=== PATIENT | female | born 1965 | race Caucasian/White ===

== ENCOUNTER → 2016-08-24 | Outpatient (CLI) | payer MEDICARE, MEDICAID ==
[~2016-08-24] MED LIST: ABILIFY2 MG PO; ALBUTEROL S0.4 MG/ML IH; AMBIEN 10MG10 MG PO; AMBIEN CR 12.12.5 MG; AMBIEN CR 12.12.5 MG PO; ATROVENT0.018 MG/A IH; BIAXIN XL500 MG PO; BUSPAR DIVIDOSE15 MG PO; CIPRO 500MG TA500 MG PO; CLARITIN 1010 MG/TAB PO; CLARITIN10 MG PO; CLONAZEPAM1 MG PO; COMBIVENT INH14.7 GM IH; CYCLOBENZAPRINE10 MG PO; CYMBALTA 30MG30 MG PO; DAZIDOX10 MG PO; DILAUDID 4MG TAB4 MG PO; DOXYCYCLINE 10100 MG PO; DOXYCYCLINE HY100 MG PO; ERY-TAB250 M1 PO; FLEXERIL10 MG PO; FLONASE0.05 MG/AC NS; FLUOXETINE10 MG PO; FLUOXETINE40 MG PO; K-DUR 2020 MEQ PO; KLONOPIN 0.5MG0.5 MG PO; KLONOPIN 1MG1 MG PO; KLONOPIN0.5 MG PO; LAMICTAL CD25 MG PO; LASIX 20MG TABL20 MG PO; LASIX 40MG TABL40 MG PO; LORATADINE10 MG PO; LORTAB 7.5/5001 TAB PO; LYRICA 75MG CAP75 MG PO; LYRICA100 MG PO; LYRICA150 MG PO; LYRICA75 MG PO; MAGNESIUM OXIDE; MAXALT MLT10 MG/TAB PO; NASONEX SPRAY PO; NIASPAN1000 MG PO; NORCO 325 MG-7.1 TAB; NYSTOP100000 U/G TP; OXYCONTIN10 MG PO; OXYCONTIN20 MG PO; OXYCONTIN30 MG PO; PERCOCET 325 MG1 TA2 PO; PERCR 7.5 PO; PHENERGAN 25 TA25 MG PO; POTASSIUM CHLO25 ME1 PO; PRAVACHOL10 MG PO; PREMARIN .3MG0.3 MG PO; PRILOSEC 20MG20 MG PO; PRILOSEC10 MG PO; PROTONIX 40MG T40 MG PO; PULMICORT0.5 MG/21 IH; REMERON 15M15 MG/TA1 PO; REXULTI1 MG PO; RT SPIRIVA18 MCG INH; SARAFEM20 MG PO; SIMVASTATIN40 MG PO; SINGULAIR10 MG PO; SONATA10 MG PO; TOPAMAX25 M1 PO; TOPAMAX50 MG PO; TRIAMTERENE AND1 TA1 PO; TRIAMTERENE W/H1 CAP PO; ULTRAM 50MG TAB50 MG PO; VALIUM 2MG T2 MG/TAB PO; VENTOLIN0.09 MG IH; VISTARIL 2525 MG/CAP PO; VOLTAREN1% TP; ZANAFLEX CAPSULE2 MG PO; ZANTAC 150MG T150 MG PO; ZAROXOLYN PO; ZOCOR 20MG20 MG PO; [UNRECOGNIZED DRUG - REMARK]
== END ==
LOC: COL.RAD 11:15
DX: R41.0 Disorientation, unspecified (principal)
CPT/HCPCS: A9585

== ENCOUNTER 2016-09-19 10:23 | Emergency (ER) | payer MEDICARE, MEDICAID ==
[~2016-09-19 10:23] MED LIST changes: -DOXYCYCLINE 10100 MG PO; -DOXYCYCLINE HY100 MG PO
[2016-09-19 10:30] VITALS: BP 115/73; TEMP 98.3
[2016-09-19] MEDS ORDERED: DOXYCYCLINE 10100 MG PO (11:04)
[2016-09-19 11:41] VITALS: PULSE 94
== END 2016-09-19 11:41 | disposition home or self-care (01) ==
LOC: COL.ER 10:23
DX: L02.214 Cutaneous abscess of groin (principal); G43.909 Migraine, unspecified, not intractable, without status migrainosus; K21.9 Gastro-esophageal reflux disease without esophagitis; F43.10 Post-traumatic stress disorder, unspecified; F41.9 Anxiety disorder, unspecified; F32.9 Major depressive disorder, single episode, unspecified; J44.9 Chronic obstructive pulmonary disease, unspecified; F17.210 Nicotine dependence, cigarettes, uncomplicated; Z86.73 Personal history of transient ischemic attack (TIA), and cerebral infarction without residual deficits

== ENCOUNTER 2016-12-09 11:55 | Emergency (ER) | payer MEDICARE, MEDICAID ==
[~2016-12-09] VITALS: Ht 165.1 cm; Wt 117.5 kg
[~2016-12-09 11:55] MED LIST changes: +DOXYCYCLINE 10100 MG PO
[2016-12-09 11:56] VITALS: BP 129/75; PULSE 86; TEMP 97.2
[2016-12-09] MEDS ORDERED: DAZIDOX10 MG PO (13:00)
== END 2016-12-09 14:07 | disposition home or self-care (01) ==
LOC: COL.ER 11:55
DX: G89.18 Other acute postprocedural pain (principal); K59.00 Constipation, unspecified; E11.9 Type 2 diabetes mellitus without complications; I10 Essential (primary) hypertension; F43.10 Post-traumatic stress disorder, unspecified; M79.7 Fibromyalgia; F17.200 Nicotine dependence, unspecified, uncomplicated
CPT/HCPCS: J1170

== ENCOUNTER 2017-01-12 16:15 | Emergency (ER) | payer MEDICARE, MEDICAID ==
[~2017-01-12] VITALS: Ht 165.1 cm; Wt 122.7 kg
[2017-01-12 16:21] VITALS: BP 104/61; TEMP 98.6
[2017-01-12] MEDS ORDERED: DOXYCYCLINE HY100 MG PO (17:11)
[2017-01-12 17:19] VITALS: PULSE 84
== END 2017-01-12 17:21 | disposition home or self-care (01) ==
LOC: COL.ER 16:15
DX: L03.311 Cellulitis of abdominal wall (principal); J98.01 Acute bronchospasm; F32.9 Major depressive disorder, single episode, unspecified; F41.9 Anxiety disorder, unspecified; F17.210 Nicotine dependence, cigarettes, uncomplicated; Z90.49 Acquired absence of other specified parts of digestive tract

== ENCOUNTER 2017-02-07 16:05 | Emergency (ER) | payer MEDICARE, MEDICAID ==
[~2017-02-07] VITALS: Ht 165.1 cm; Wt 126.8 kg
[~2017-02-07 16:05] MED LIST changes: +DOXYCYCLINE HY100 MG PO
[2017-02-07 16:08] VITALS: BP 119/71; PULSE 90; TEMP 97.7
[2017-02-07] MEDS ORDERED: TESSALON PERLE200 MG PO (16:23)
[2017-02-07] MEDS ORDERED: FENTANYL 25 MCG TD (16:23)
[2017-02-07] MEDS ORDERED: OMNICEF 300MG300 MG PO (16:24)
== END 2017-02-07 16:45 | disposition home or self-care (01) ==
LOC: COL.ER 16:05
DX: R21 Rash and other nonspecific skin eruption (principal)

== ENCOUNTER 2017-02-16 10:20 | Emergency (ER) | payer MEDICARE, MEDICAID ==
[~2017-02-16] VITALS: Ht 165.1 cm; Wt 115.5 kg
[~2017-02-16 10:20] MED LIST changes: +FENTANYL 25 MCG TD; +OMNICEF 300MG300 MG PO; +TESSALON PERLE200 MG PO
[2017-02-16 10:23] VITALS: BP 124/64; TEMP 98.1
[2017-02-16 11:45] VITALS: PULSE 58
== END 2017-02-16 11:45 | disposition home or self-care (01) ==
LOC: COL.ER 10:20
DX: S39.012A Strain of muscle, fascia and tendon of lower back, initial encounter (principal); S39.013A Strain of muscle, fascia and tendon of pelvis, initial encounter; J44.9 Chronic obstructive pulmonary disease, unspecified; F17.210 Nicotine dependence, cigarettes, uncomplicated; W01.198A Fall on same level from slipping, tripping and stumbling with subsequent striking against other object, initial encounter

== ENCOUNTER 2017-06-12 10:23 | Emergency (ER) | payer MEDICARE, MEDICAID ==
[~2017-06-12] VITALS: Ht 165.1 cm; Wt 106.8 kg
[~2017-06-12 10:23] MED LIST changes: +CHANTIX 1MG1 MG PO; +KLOR-CON 88 ME1; -LYRICA150 MG PO; +LYRICA300 MG PO; +PREDNISONE20 MG PO; +PROZAC40 MG PO; +REQUIP 1MG T1 MG/TAB PO; +REXULTI2 MG PO; +SINGULAIR 110 MG/TAB PO; -SINGULAIR10 MG PO; +ZITHROMAX Z PA250 MG PO
[2017-06-12 10:29] VITALS: TEMP 97.6
[2017-06-12 11:20] LABS: BASO % 0.3 % (0.0-2.0); EOS % 0.3 % (0-4.0); GRAN # 4.3 (1.4-6.5); GRAN % 67.9 % (42.2-75.2); HEMATOCRIT 46.8 % (37.0-47.0); HEMOGLOBIN 15.7 g/dl (12.5-16.0); LYMPH # 1.6 (1.2-3.4); LYMPH % 25.5 % (20.0-51.0); MEAN CELL VOLUME 86 fl (80.0-100.0); MEAN CORPUSCULAR HEMOGLOBIN 29 pg (27.0-31.0); MEAN CORPUSCULAR HGB CONC 34 g/dl (33.0-37.0); MEAN PLATELET VOLUME 11.4 fl (7.4-10.4); MONO # 0.4 (0.1-0.6); MONO % 5.5 % (1.7-9.3); PLATELET COUNT 227 K/mm3 (130-400); RED BLOOD COUNT 5.45 M/mm3 (4.10-5.30); REDCELL DISTRIBUTION WIDTH-CV 15.1 % (11.5-14.5)
[2017-06-12 11:33] LABS: ALANINE AMINOTRANSFERASE 37 U/L (9-52); ALBUMIN 4.4 gm/dL (3.5-5.0); ALKALINE PHOSPHATASE 118 U/L (50-136); ANION GAP 10 mmol/L (7-16); AST,SGOT 35 U/L (15-37); BILIRUBIN,TOTAL 0.9 mg/dL (0.0-1.0); BLOOD UREA NITROGEN 10 mg/dL (7-17); C-REACTIVE PROTEIN 2.9 mg/dL (0.0-0.9); CALCIUM 9.5 mg/dL (8.4-10.2); CARBON DIOXIDE 25 mmol/L (22-30); CHLORIDE 102 mmol/L (98-107); CREATININE, serum 0.49 mg/dL (0.52-1.25); GLUCOSE 138 mg/dL (74-106); POTASSIUM 3.7 mmol/L (3.4-5.0); SODIUM 137 mmol/L (137-145); TOTAL PROTEIN 7.7 gm/dL (6.4-8.2)
[2017-06-12 11:41] LABS: ACETAMINOPHEN < 10 ug/mL (10-30); ALCOHOL(ethanol),MEDICAL < 10 mg/dL; SALICYLATE < 1.0 mg/dL
[2017-06-12] MEDS ORDERED: FENTANYL 75MCG TD (11:45)
[2017-06-12] MEDS ORDERED: AMBIEN 10MG10 MG PO (11:47)
[2017-06-12] MEDS ORDERED: ZANAFLEX2 MG PO (11:50)
[2017-06-12] MEDS ORDERED: AMITRIPTYLINE H25 M1 PO (11:50)
[2017-06-12 12:28] LABS: COLLECTION METHOD CLEAN CATCH
[2017-06-12 12:44] LABS: TRICYCLIC ANTIDEPRESS URINE POSITIVE
[2017-06-12 12:46] LABS: MUCOUS Present /lpf; PH 6 (5-8); URINE APPEARANCE Cloudy; URINE BACTERIA None Seen /hpf; URINE BILIRUBIN Negative (NEGATIVE); URINE BLOOD Negative (NEGATIVE); URINE COLOR Yellow; URINE GLUCOSE Negative (NEGATIVE); URINE KETONE Negative (NEGATIVE); URINE LEUKOCYTE ESTERASE Negative (NEGATIVE); URINE NITRATE Negative (NEGATIVE); URINE PROTEIN(semi-quant) Negative (NEGATIVE); URINE UROBILINOGEN Negative (NEGATIVE)
[2017-06-12 13:52] VITALS: BP 104/68; PULSE 90
== END 2017-06-12 14:00 | disposition home or self-care (01) ==
LOC: COL.ER 10:23
PROVIDERS: Emergency Medicine
DX: F32.9 Major depressive disorder, single episode, unspecified (principal); R45.851 Suicidal ideations; F19.10 Other psychoactive substance abuse, uncomplicated; G89.29 Other chronic pain; F17.210 Nicotine dependence, cigarettes, uncomplicated
CPT/HCPCS: J2405; J7030

== ENCOUNTER 2017-07-08 16:55 | Emergency (ER) | payer MEDICARE, MEDICAID ==
[~2017-07-08] VITALS: Ht 165.1 cm; Wt 118.2 kg
[~2017-07-08 16:55] MED LIST changes: +AMITRIPTYLINE H25 M1 PO; +FENTANYL 75MCG TD; +ZANAFLEX2 MG PO
[2017-07-08 16:57] VITALS: BP 155/73; PULSE 99; TEMP 97.6
[2017-07-08] MEDS ORDERED: ULTRAM 50MG TAB50 MG PO (17:28)
[2017-07-08] MEDS ORDERED: CEPHALEXIN500 M1 PO (17:28)
== END 2017-07-08 17:37 | disposition home or self-care (01) ==
LOC: COL.ER 16:55
DX: K02.9 Dental caries, unspecified (principal); I10 Essential (primary) hypertension; J44.9 Chronic obstructive pulmonary disease, unspecified; F32.9 Major depressive disorder, single episode, unspecified; F41.9 Anxiety disorder, unspecified; F43.10 Post-traumatic stress disorder, unspecified; F17.210 Nicotine dependence, cigarettes, uncomplicated; Z87.39 Personal history of other diseases of the musculoskeletal system and connective tissue

== ENCOUNTER 2017-07-11 12:56 | Emergency (ER) | payer MEDICARE, MEDICAID ==
[~2017-07-11] VITALS: Ht 165.1 cm; Wt 119.1 kg
[~2017-07-11 12:56] MED LIST changes: +CEPHALEXIN500 M1 PO
[2017-07-11 13:03] VITALS: BP 120/74; PULSE 82; TEMP 97.7
[2017-07-11] MEDS ORDERED: KLONOPIN 1MG1 MG PO (13:47)
[2017-07-11] MEDS ORDERED: CLEOCIN HCL300 MG PO (14:50)
[2017-07-11] MEDS ORDERED: MOTRIN 600600 MG/TAB PO (15:12)
== END 2017-07-11 15:21 | disposition home or self-care (01) ==
LOC: COL.ER 12:56
DX: K02.9 Dental caries, unspecified (principal); I10 Essential (primary) hypertension; F32.9 Major depressive disorder, single episode, unspecified; F41.9 Anxiety disorder, unspecified; J44.9 Chronic obstructive pulmonary disease, unspecified; M79.7 Fibromyalgia; F17.210 Nicotine dependence, cigarettes, uncomplicated

== ENCOUNTER 2017-09-03 11:48 | Emergency (ER) | payer MEDICARE, MEDICAID ==
[~2017-09-03] VITALS: Ht 165.1 cm; Wt 118.2 kg
[~2017-09-03 11:48] MED LIST changes: +CLEOCIN HCL300 MG PO; +MOTRIN 600600 MG/TAB PO
[2017-09-03 11:57] VITALS: BP 106/68; PULSE 93; TEMP 97.1
[2017-09-03 12:43] LABS: BASO % 0.4 % (0.0-2.0); EOS % 0.3 % (0-4.0); GRAN # 6.6 (1.4-6.5); GRAN % 66.3 % (42.2-75.2); HEMATOCRIT 43.4 % (37.0-47.0); HEMOGLOBIN 14.8 g/dl (12.5-16.0); LYMPH # 2.7 (1.2-3.4); LYMPH % 27.6 % (20.0-51.0); MEAN CELL VOLUME 88 fl (80.0-100.0); MEAN CORPUSCULAR HEMOGLOBIN 30 pg (27.0-31.0); MEAN CORPUSCULAR HGB CONC 34 g/dl (33.0-37.0); MEAN PLATELET VOLUME 11.6 fl (7.4-10.4); MONO # 0.5 (0.1-0.6); MONO % 4.9 % (1.7-9.3); PLATELET COUNT 193 K/mm3 (130-400); RED BLOOD COUNT 4.92 M/mm3 (4.10-5.30); REDCELL DISTRIBUTION WIDTH-CV 14.7 % (11.5-14.5)
[2017-09-03 12:47] LABS: COLLECTION METHOD CLEAN CATCH
[2017-09-03 12:55] LABS: BILIRUBIN,TOTAL 0.5 mg/dL (0.0-1.0); CALCIUM 9.5 mg/dL (8.4-10.2); CREATININE, serum 0.53 mg/dL (0.52-1.25); POTASSIUM 3.8 mmol/L (3.4-5.0); TOTAL PROTEIN 8.1 gm/dL (6.4-8.2)
[2017-09-03 12:56] LABS: MUCOUS Present /lpf; PH 5 (5-8); URINE APPEARANCE Hazy; URINE BACTERIA None Seen /hpf; URINE BILIRUBIN Negative (NEGATIVE); URINE BLOOD Negative (NEGATIVE); URINE COLOR Yellow; URINE GLUCOSE Negative (NEGATIVE); URINE KETONE Negative (NEGATIVE); URINE LEUKOCYTE ESTERASE Negative (NEGATIVE); URINE NITRATE Negative (NEGATIVE); URINE PROTEIN(semi-quant) Negative (NEGATIVE); URINE RBC 0-2 /hpf; URINE UROBILINOGEN Negative (NEGATIVE)
[2017-09-03 13:23] LABS: TSH w REFLEX 0.655 uIU/mL (0.465-4.680)
== END 2017-09-03 14:15 | disposition home or self-care (01) ==
LOC: COL.ER 11:48
PROVIDERS: Physician Assistant
DX: R51 Headache (principal); R41.0 Disorientation, unspecified; I10 Essential (primary) hypertension; K21.9 Gastro-esophageal reflux disease without esophagitis; F32.9 Major depressive disorder, single episode, unspecified; F41.9 Anxiety disorder, unspecified; J44.9 Chronic obstructive pulmonary disease, unspecified; Z88.2 Allergy status to sulfonamides; Z90.710 Acquired absence of both cervix and uterus

== ENCOUNTER 2017-09-07 11:34 | Observation (INO) | payer MEDICARE, MEDICAID ==
[~2017-09-07] VITALS: Ht 165.1 cm; Wt 111.7 kg
[2017-09-07 12:25] LABS: COLLECTION METHOD CLEAN CATCH
[2017-09-07] MEDS ORDERED: RESTORIL 1515 MG/CAP PO (12:32)
[2017-09-07 12:36] LABS: MUCOUS Present /lpf; PH 5 (5-8); SQUAMOUS EPITHELIAL None Seen /hpf; URINE APPEARANCE Clear; URINE BACTERIA None Seen /hpf; URINE BILIRUBIN Negative (NEGATIVE); URINE BLOOD Negative (NEGATIVE); URINE COLOR Yellow; URINE GLUCOSE Negative (NEGATIVE); URINE KETONE Negative (NEGATIVE); URINE LEUKOCYTE ESTERASE Negative (NEGATIVE); URINE NITRATE Negative (NEGATIVE); URINE PROTEIN(semi-quant) Negative (NEGATIVE); URINE RBC 0-2 /hpf; URINE UROBILINOGEN Negative (NEGATIVE)
[2017-09-07 12:41] LABS: ALANINE AMINOTRANSFERASE 30 U/L (9-52); ALBUMIN 4.1 gm/dL (3.5-5.0); ALKALINE PHOSPHATASE 100 U/L (50-136); ANION GAP 15 mmol/L (7-16); AST,SGOT 22 U/L (15-37); BILIRUBIN,TOTAL 0.4 mg/dL (0.0-1.0); BLOOD UREA NITROGEN 17 mg/dL (7-17); C-REACTIVE PROTEIN 1.8 mg/dL (0.0-0.9); CALCIUM 9.8 mg/dL (8.4-10.2); CARBON DIOXIDE 23 mmol/L (22-30); CHLORIDE 103 mmol/L (98-107); CREATININE, serum 0.55 mg/dL (0.52-1.25); GLUCOSE 102 mg/dL (74-106); MAGNESIUM 1.5 mg/dL (1.6-2.3); PHOSPHOROUS 3.4 mg/dL (2.5-4.5); SODIUM 142 mmol/L (137-145); TOTAL PROTEIN 7.8 gm/dL (6.4-8.2)
[2017-09-07 12:43] LABS: ACETAMINOPHEN < 10 ug/mL (10-30); ALCOHOL(ethanol),MEDICAL < 10 mg/dL; SALICYLATE < 1.0 mg/dL
[2017-09-07 12:44] LABS: BASO % 0.4 % (0.0-2.0); EOS # 0.1 (0.0-0.7); EOS % 0.7 % (0-4.0); GRAN # 4.7 (1.4-6.5); GRAN % 57.2 % (42.2-75.2); HEMATOCRIT 43.1 % (37.0-47.0); HEMOGLOBIN 14.4 g/dl (12.5-16.0); LYMPH % 35.7 % (20.0-51.0); MEAN CELL VOLUME 90 fl (80.0-100.0); MEAN CORPUSCULAR HEMOGLOBIN 30 pg (27.0-31.0); MEAN CORPUSCULAR HGB CONC 33 g/dl (33.0-37.0); MEAN PLATELET VOLUME 11.5 fl (7.4-10.4); MONO # 0.5 (0.1-0.6); MONO % 5.4 % (1.7-9.3); PLATELET COUNT 194 K/mm3 (130-400); RED BLOOD COUNT 4.79 M/mm3 (4.10-5.30); REDCELL DISTRIBUTION WIDTH-CV 14.6 % (11.5-14.5)
[2017-09-07 12:45] LABS: TRICYCLIC ANTIDEPRESS URINE POSITIVE
[2017-09-07 12:52] LABS: TROPONIN-I < 0.012 ng/mL (0.000-0.034)
[2017-09-07 15:02] LABS: ARTERIAL BLD GAS O2 SATURATION 92.2 % (92-100); ARTERIAL BLD GAS TCO2 CT 27.9; ARTERIAL BLOOD GAS BASE EXCESS 1.8 (-2-2); ARTERIAL BLOOD GAS HCO3 26.6 meq/L (22-26); ARTERIAL BLOOD GAS PCO2 42.2 mmHg (35-45); ARTERIAL BLOOD GAS PO2 63.7 mmHg (80-100); ARTERIAL BLOOD GAS pH 7.42 (7.35-7.45)
[2017-09-07] MEDS ORDERED: KLONOPIN2 MG PO (15:02)
[2017-09-07] MEDS ORDERED: ZANAFLEX CAPSULE2 MG PO (15:02)
[2017-09-07] MEDS ORDERED: MAXALT10 MG PO (15:02)
[2017-09-07] MEDS ORDERED: AMITRIPTYLINE H25 M1 PO (15:03)
[2017-09-07] MEDS ORDERED: PHENERGAN 25 TA25 MG PO (15:03)
[2017-09-07] MEDS ORDERED: SINGULAIR 110 MG/TAB PO (15:04)
[2017-09-07] MEDS ORDERED: AMBIEN CR 12.12.5 MG PO (15:04)
[2017-09-07] MEDS ORDERED: REQUIP 1MG T1 MG/TAB PO (15:10)
[2017-09-07] MEDS ORDERED: LUNESTA3 MG PO (15:13)
[2017-09-07 16:52] VITALS: BP 110/50; PULSE 80; TEMP 98.3
[2017-09-07 20:25] VITALS: BP 122/72; PULSE 84; TEMP 98.1
[2017-09-07 23:50] VITALS: BP 121/71; PULSE 84; TEMP 98
[2017-09-08 03:30] VITALS: BP 102/53; PULSE 86; TEMP 97.5
[2017-09-08 07:41] LABS: MAGNESIUM 1.6 mg/dL (1.6-2.3)
[2017-09-08 09:31] VITALS: BP 126/65; PULSE 85; TEMP 98.4
[2017-09-08 13:30] VITALS: BP 95/64; PULSE 82; TEMP 97.6
[2017-09-08 15:12] LABS: FOLATE (FOLIC ACID) 10.8 ng/mL (7.0-31.4)
[2017-09-08 15:50] VITALS: BP 96/55; PULSE 83; TEMP 98.5
[2017-09-08 19:29] VITALS: BP 119/49; PULSE 87; TEMP 97.8
[2017-09-08 23:17] VITALS: BP 82/46; PULSE 72; TEMP 98.3
[2017-09-09 00:59] VITALS: BP 120/99; PULSE 76
[2017-09-09 04:23] VITALS: BP 106/67; PULSE 76; TEMP 97.4
[2017-09-09 08:20] VITALS: BP 112/60; PULSE 69; TEMP 98
[2017-09-09] MEDS ORDERED: AMITRIPTYLINE H25 M1 PO (09:03)
[2017-09-11 08:30] LABS: VITAMIN B1 185 nmol/L (70-180)
== END 2017-09-09 14:15 | disposition home or self-care (01) ==
LOC: COL.ER 11:34 → MEDICAL 14:40
PROVIDERS: Emergency Medicine; Psychiatry & Neurology Neurology
DX: R40.1 Stupor (principal); M51.06 Intervertebral disc disorders with myelopathy, lumbar region; E66.01 Morbid (severe) obesity due to excess calories; Z68.41 Body mass index [BMI] 40.0-44.9, adult; F32.9 Major depressive disorder, single episode, unspecified; F41.9 Anxiety disorder, unspecified; G89.29 Other chronic pain; R51 Headache; L30.4 Erythema intertrigo; G62.9 Polyneuropathy, unspecified; F17.210 Nicotine dependence, cigarettes, uncomplicated; F12.10 Cannabis abuse, uncomplicated; F15.99 Other stimulant use, unspecified with unspecified stimulant-induced disorder; Z79.899 Other long term (current) drug therapy
CPT/HCPCS: 99231-AI; G0378; G8978-GP; G8979-GP; G8987-GO; G8988-GO; J1644; J7030

== ENCOUNTER 2017-11-19 08:44 | Emergency (ER) | payer MEDICARE, MEDICAID ==
[~2017-11-19] VITALS: Ht 165.1 cm; Wt 118.6 kg
[~2017-11-19 08:44] MED LIST changes: +KLONOPIN2 MG PO; +LUNESTA3 MG PO; +MAXALT10 MG PO; +RESTORIL 1515 MG/CAP PO
[2017-11-19 08:46] VITALS: BP 112/81
[2017-11-19] MEDS ORDERED: TYLENOL 500MG500 MG PO (09:07)
[2017-11-19] MEDS ORDERED: NORCO 325 MG-51 TAB PO (09:36)
[2017-11-19] MEDS ORDERED: PEN-VEE K500 MG PO (09:36)
[2017-11-19 09:45] VITALS: PULSE 84; TEMP 97.2
== END 2017-11-19 09:48 | disposition home or self-care (01) ==
LOC: COL.ER 08:44
DX: R68.84 Jaw pain (principal); M54.5 Low back pain; F32.9 Major depressive disorder, single episode, unspecified; F41.9 Anxiety disorder, unspecified; F43.10 Post-traumatic stress disorder, unspecified; J44.9 Chronic obstructive pulmonary disease, unspecified; Z90.710 Acquired absence of both cervix and uterus; Z88.0 Allergy status to penicillin; Z88.6 Allergy status to analgesic agent; Z88.2 Allergy status to sulfonamides

== ENCOUNTER → 2017-12-31 | Outpatient (CLI) | payer MEDICARE, MEDICAID ==
[~2017-12-31] MED LIST changes: +NORCO 325 MG-51 TAB PO; +PEN-VEE K500 MG PO; +TYLENOL 500MG500 MG PO
[2017-12-31 15:54] LABS: BASO % 0.3 % (0.0-2.0); EOS # 0.1 (0.0-0.7); EOS % 1.2 % (0-4.0); GRAN # 7.8 (1.4-6.5); GRAN % 67.7 % (42.2-75.2); HEMATOCRIT 42.6 % (37.0-47.0); HEMOGLOBIN 13.8 g/dl (12.5-16.0); LYMPH # 2.7 (1.2-3.4); LYMPH % 23.7 % (20.0-51.0); MEAN CELL VOLUME 92 fl (80.0-100.0); MEAN CORPUSCULAR HEMOGLOBIN 30 pg (27.0-31.0); MEAN CORPUSCULAR HGB CONC 32 g/dl (33.0-37.0); MONO # 0.8 (0.1-0.6); MONO % 6.7 % (1.7-9.3); PLATELET COUNT 189 K/mm3 (130-400); RED BLOOD COUNT 4.62 M/mm3 (4.10-5.30); REDCELL DISTRIBUTION WIDTH-CV 14.2 % (11.5-14.5)
[2017-12-31 16:00] LABS: ALBUMIN 3.8 gm/dL (3.5-5.0); BILIRUBIN,TOTAL 0.3 mg/dL (0.0-1.0); CALCIUM 9.5 mg/dL (8.4-10.2); CHOLESTEROL RISK RATIO 4.8; CREATININE, serum 0.57 mg/dL (0.52-1.25); POTASSIUM 3.8 mmol/L (3.4-5.0); TOTAL PROTEIN 7.5 gm/dL (6.4-8.2)
[2017-12-31 16:30] LABS: TSH w REFLEX 1.84 uIU/mL (0.465-4.680)
== END ==
LOC: COL.LAB 11:12
PROVIDERS: Family Medicine
DX: Z13.29 Encounter for screening for other suspected endocrine disorder (principal); J32.9 Chronic sinusitis, unspecified; E78.5 Hyperlipidemia, unspecified

== ENCOUNTER 2018-02-18 11:15 | Outpatient (RCR) | payer MEDICARE, MEDICAID | END 2018-04-18 | disposition home or self-care (01) | LOC: WSPT | DX: M54.5 Low back pain (principal) | CPT/HCPCS: G8978-GP; G8979-GP ==

== ENCOUNTER 2018-03-11 16:24 | Emergency (ER) | payer MEDICARE, MEDICAID | END 2018-03-11 16:30 | disposition left against medical advice (07) | LOC: COL.ER 16:24 | DX: Z72.9 Problem related to lifestyle, unspecified (principal) ==

== ENCOUNTER 2018-07-18 10:55 | Emergency (ER) | payer MEDICARE, MEDICAID ==
[~2018-07-18] VITALS: Ht 165.1 cm; Wt 131.8 kg
[2018-07-18 11:09] VITALS: BP 120/66
[2018-07-18] MEDS ORDERED: MOTRIN 800800 MG/TAB PO (13:35)
[2018-07-18] MEDS ORDERED: VENTOLIN0.09 MG INH (13:38)
[2018-07-18] MEDS ORDERED: PREDNISONE20 MG PO (14:35)
[2018-07-18] MEDS ORDERED: ZITHROMAX Z PA250 MG PO (14:35)
[2018-07-18] MEDS ORDERED: PROVENTIL0.09 MG/A1 IH (14:36)
[2018-07-18 15:00] VITALS: PULSE 83; TEMP 97.5
== END 2018-07-18 15:00 | disposition home or self-care (01) ==
LOC: COL.ER 10:55
DX: J44.9 Chronic obstructive pulmonary disease, unspecified (principal); F17.210 Nicotine dependence, cigarettes, uncomplicated; F43.10 Post-traumatic stress disorder, unspecified; F41.9 Anxiety disorder, unspecified; F32.9 Major depressive disorder, single episode, unspecified; Z90.710 Acquired absence of both cervix and uterus

== ENCOUNTER → 2018-08-12 | Outpatient (CLI) | payer MEDICARE, MEDICAID ==
[~2018-08-12] MED LIST changes: +MOTRIN 800800 MG/TAB PO; +PROVENTIL0.09 MG/A1 IH; +VENTOLIN0.09 MG INH
[2018-08-12 12:37] LABS: ALBUMIN 4.2 gm/dL (3.5-5.0); BILIRUBIN,TOTAL 0.4 mg/dL (0.0-1.0); CALCIUM 9.9 mg/dL (8.4-10.2); CREATININE, serum 0.62 (0.52-1.25); POTASSIUM 3.7 mmol/L (3.4-5.0); TOTAL PROTEIN 7.6 gm/dL (6.4-8.2)
== END ==
LOC: COL.LAB 11:39
PROVIDERS: Psychiatry & Neurology Neurology
DX: G25.81 Restless legs syndrome (principal); E66.9 Obesity, unspecified; M51.36 Other intervertebral disc degeneration, lumbar region

== ENCOUNTER → 2018-08-12 | Outpatient (CLI) | payer MEDICARE, MEDICAID | LOC: COL.PUL 11:30 | DX: J43.9 Emphysema, unspecified (principal); F17.210 Nicotine dependence, cigarettes, uncomplicated ==

== ENCOUNTER → 2018-10-14 | Outpatient (CLI) | payer MEDICARE, MEDICAID | LOC: COL.VAS 10:15 | DX: M79.605 Pain in left leg (principal) ==

== ENCOUNTER 2020-08-27 04:40 | Emergency (ER) | payer MEDICARE, MEDICAID ==
[~2020-08-27] VITALS: Ht 165.1 cm; Wt 136.4 kg
[2020-08-27 04:49] VITALS: TEMP 98.4
[2020-08-27 05:11] LABS: BASO % 0.5 % (0.0-2.0); EOS # 0.1 (0.0-0.7); EOS % 1.2 % (0-4.0); GRAN # 3.4 (1.4-6.5); GRAN % 52.6 % (42.2-75.2); HEMATOCRIT 47.3 % (37.0-47.0); LYMPH # 2.6 (1.2-3.4); MEAN CELL VOLUME 89 fl (80.0-100.0); MEAN CORPUSCULAR HEMOGLOBIN 28 pg (27.0-31.0); MEAN CORPUSCULAR HGB CONC 32 g/dl (33.0-37.0); MEAN PLATELET VOLUME 12.1 fl (7.4-10.4); MONO # 0.4 (0.1-0.6); MONO % 5.5 % (1.7-9.3); PLATELET COUNT 190 K/mm3 (130-400); RED BLOOD COUNT 5.32 M/mm3 (4.10-5.30)
[2020-08-27 05:23] LABS: CALCIUM 9.2 mg/dL (8.4-10.2); CREATININE, serum 0.53 (0.52-1.25); POTASSIUM 3.4 mmol/L (3.4-5.0)
[2020-08-27 05:51] LABS: COLLECTION METHOD CLEAN CATCH
[2020-08-27 05:57] LABS: MUCOUS Present /lpf; PH 5 (5-8); SQUAMOUS EPITHELIAL 0-2 /hpf; URINE APPEARANCE Hazy; URINE BACTERIA None Seen /hpf; URINE BILIRUBIN Negative (NEGATIVE); URINE BLOOD Negative (NEGATIVE); URINE COLOR Yellow; URINE GLUCOSE Negative (NEGATIVE); URINE KETONE Negative (NEGATIVE); URINE LEUKOCYTE ESTERASE Negative (NEGATIVE); URINE NITRATE Negative (NEGATIVE); URINE PROTEIN(semi-quant) Negative (NEGATIVE); URINE RBC 0-2 /hpf; URINE UROBILINOGEN Negative (NEGATIVE)
[2020-08-27 07:15] VITALS: BP 108/94; PULSE 70
[2020-10-31] MEDS ORDERED: FLAGYL500 MG PO (09:15)
[2020-10-31] MEDS ORDERED: OMNICEF 300MG300 MG PO (09:15)
[2020-10-31] MEDS ORDERED: ROXICODONE 55 MG/TAB PO (09:17)
== END 2020-08-27 07:16 | disposition home or self-care (01) ==
LOC: COL.ER 04:40
PROVIDERS: Emergency Medicine
DX: R55 Syncope and collapse (principal); B36.9 Superficial mycosis, unspecified; R21 Rash and other nonspecific skin eruption; E66.9 Obesity, unspecified; Z88.0 Allergy status to penicillin; Z88.2 Allergy status to sulfonamides; Z88.6 Allergy status to analgesic agent; Z91.041 Radiographic dye allergy status; Z88.1 Allergy status to other antibiotic agents

== ENCOUNTER 2020-10-12 21:11 | Inpatient (IN) | payer MEDICARE, MEDICAID ==
[~2020-10-12] VITALS: Ht 165.1 cm; Wt 114.3 kg
[2020-10-12 22:15] LABS: BASO % 0.4 % (0.0-2.0); EOS # 0.1 (0.0-0.7); EOS % 0.7 % (0-4.0); GRAN # 5.8 (1.4-6.5); GRAN % 68.4 % (42.2-75.2); HEMATOCRIT 45.1 % (37.0-47.0); HEMOGLOBIN 14.5 g/dl (12.5-16.0); LYMPH # 2.1 (1.2-3.4); LYMPH % 24.4 % (20.0-51.0); MEAN CELL VOLUME 90 fl (80.0-100.0); MEAN CORPUSCULAR HEMOGLOBIN 29 pg (27.0-31.0); MEAN CORPUSCULAR HGB CONC 32 g/dl (33.0-37.0); MEAN PLATELET VOLUME 12.4 fl (7.4-10.4); MONO # 0.5 (0.1-0.6); MONO % 5.6 % (1.7-9.3); PLATELET COUNT 149 K/mm3 (130-400); RED BLOOD COUNT 5.04 M/mm3 (4.10-5.30); REDCELL DISTRIBUTION WIDTH-CV 14.8 % (11.5-14.5)
[2020-10-12 22:21] LABS: PROTHROMBIN TIME 11.1 SECONDS (9.7-12.8)
[2020-10-12 22:23] LABS: PARTIAL THROMBOPLASTIN TIME 19.8 SECONDS (26.0-37.0)
[2020-10-12 22:25] LABS: BILIRUBIN,TOTAL 0.6 mg/dL (0.0-1.0); CALCIUM 9.1 mg/dL (8.4-10.2); CREATININE, serum 0.53 (0.52-1.25); POTASSIUM 3.4 mmol/L (3.4-5.0); TOTAL PROTEIN 7.3 gm/dL (6.4-8.2)
[2020-10-12 22:35] LABS: ARTERIAL BLD GAS O2 SATURATION 92.4 % (92-100); ARTERIAL BLD GAS TCO2 CT 30.5; ARTERIAL BLOOD GAS BASE EXCESS 3.2 (-2-2); ARTERIAL BLOOD GAS PCO2 48.3 mmHg (35-45); ARTERIAL BLOOD GAS PO2 65.8 mmHg (80-100)
[2020-10-12 22:41] LABS: TROPONIN-I 0.037 ng/mL (0.000-0.035)
[2020-10-12 23:47] LABS: HEMATOCRIT 43.3 % (37.0-47.0); HEMOGLOBIN 14.1 g/dl (12.5-16.0); MEAN CELL VOLUME 89 fl (80.0-100.0); MEAN CORPUSCULAR HEMOGLOBIN 29 pg (27.0-31.0); MEAN CORPUSCULAR HGB CONC 33 g/dl (33.0-37.0); MEAN PLATELET VOLUME 11.7 fl (7.4-10.4); PLATELET COUNT 184 K/mm3 (130-400); RED BLOOD COUNT 4.89 M/mm3 (4.10-5.30); REDCELL DISTRIBUTION WIDTH-CV 14.6 % (11.5-14.5)
[2020-10-13] VITALS (920 sets, daily range): BP systolic 88–105; BP diastolic 60–77; PULSE 61–77; TEMP 97.7–98.1; O2SAT 75–100
[2020-10-13 00:13] LABS: ARTERIAL BLOOD GAS BASE EXCESS 2.1 (-2-2); ARTERIAL BLOOD GAS HCO3 28.7 meq/L (22-26); ARTERIAL BLOOD GAS PCO2 52.6 mmHg (35-45); ARTERIAL BLOOD GAS PO2 70.4 mmHg (80-100); ARTERIAL BLOOD GAS pH 7.36 (7.35-7.45)
[2020-10-13] MEDS ORDERED: AMBIEN 10MG10 MG PO (00:22)
[2020-10-13] MEDS ORDERED: KLONOPIN2 MG PO (00:25)
[2020-10-13] MEDS ORDERED: REQUIP2 MG PO (00:26)
[2020-10-13] MEDS ORDERED: ZOLOFT 100MG100 MG PO (00:27)
[2020-10-13] MEDS ORDERED: ZANAFLEX CAPSULE4 MG PO (00:27)
[2020-10-13] MEDS ORDERED: PROTONIX 40MG T40 MG PO (00:29)
[2020-10-13] MEDS ORDERED: RT SPIRIVA18 MCG IH (00:30)
[2020-10-13] MEDS ORDERED: XALATAN EYE DROPS OU (00:31)
[2020-10-13 02:20] LABS: ARTERIAL BLD GAS O2 SATURATION 91.4 % (92-100); ARTERIAL BLD GAS TCO2 CT 29.3; ARTERIAL BLOOD GAS BASE EXCESS 0.8 (-2-2); ARTERIAL BLOOD GAS HCO3 27.7 meq/L (22-26); ARTERIAL BLOOD GAS PCO2 53.5 mmHg (35-45); ARTERIAL BLOOD GAS PO2 67.6 mmHg (80-100); ARTERIAL BLOOD GAS pH 7.33 (7.35-7.45)
--- NOTE | 2020-10-13 02:30 | NUR ---
Patient arrived to ICU 4 at 0145. Assessment complete and charted. Patient lethargic. Able to awaken and oriented while awake. Call light in reach. Bed alarm in place. Patient given bed bath and changed into hospital gown. Patient unable to stay awake long enough to review medications. Patient also hypotensive. 88 systolic. Apolonia CHACKO notified. Started IVF at 125ml/hr. Will watch BPs response to fluids.
[2020-10-13 02:31] LABS: COLLECTION METHOD CATHETER
[2020-10-13 02:45] LABS: MUCOUS Present /lpf; PH 5 (5-8); SQUAMOUS EPITHELIAL 0-2 /hpf; TRICYCLIC ANTIDEPRESS URINE POSITIVE; URINE APPEARANCE Hazy; URINE BACTERIA Rare /hpf; URINE BILIRUBIN Negative (NEGATIVE); URINE BLOOD Negative (NEGATIVE); URINE COLOR Yellow; URINE GLUCOSE Negative (NEGATIVE); URINE KETONE Negative (NEGATIVE); URINE LEUKOCYTE ESTERASE 3+ (NEGATIVE); URINE NITRATE Negative (NEGATIVE); URINE PROTEIN(semi-quant) Negative (NEGATIVE); URINE WBC 20-50 /hpf
[2020-10-13 04:36] LABS: ARTERIAL BLD GAS O2 SATURATION 93.9 % (92-100); ARTERIAL BLD GAS TCO2 CT 27.5; ARTERIAL BLOOD GAS BASE EXCESS 0.1 (-2-2); ARTERIAL BLOOD GAS HCO3 26.1 meq/L (22-26); ARTERIAL BLOOD GAS PCO2 47.4 mmHg (35-45); ARTERIAL BLOOD GAS PO2 73.3 mmHg (80-100); ARTERIAL BLOOD GAS pH 7.36 (7.35-7.45)
[2020-10-13 06:16] LABS: BASO % 0.1 % (0.0-2.0); EOS % 0.1 % (0-4.0); GRAN # 8.1 (1.4-6.5); GRAN % 84.7 % (42.2-75.2); HEMATOCRIT 43.4 % (37.0-47.0); LYMPH # 1.3 (1.2-3.4); LYMPH % 13.6 % (20.0-51.0); MEAN CELL VOLUME 90 fl (80.0-100.0); MEAN CORPUSCULAR HEMOGLOBIN 29 pg (27.0-31.0); MEAN CORPUSCULAR HGB CONC 32 g/dl (33.0-37.0); MEAN PLATELET VOLUME 12.1 fl (7.4-10.4); MONO # 0.1 (0.1-0.6); MONO % 1.1 % (1.7-9.3); PLATELET COUNT 184 K/mm3 (130-400); REDCELL DISTRIBUTION WIDTH-CV 14.6 % (11.5-14.5)
--- NOTE | 2020-10-13 06:17 | NUR ---
Patient had uneventful night. Alert and orientated this AM. On cell phone and watching television. Denies needs. Call light in reach.
[2020-10-13 06:28] LABS: CALCIUM 8.2 mg/dL (8.4-10.2); CREATININE, serum 0.47 (0.52-1.25); POTASSIUM 3.9 mmol/L (3.4-5.0)
--- NOTE | 2020-10-13 06:31 | NUR ---
Holding heparin for 2 hours per protocol at this time.
--- NOTE | 2020-10-13 07:00 | NUR ---
RECEIVED REPORT FROM MARLIN DAVE. PT RESTING IN BED. PT ON BIPAP AT 75%. VSS. CALL LIGHT WITHIN REACH. FC PATENT AND DRAINING TO GRAVITY.
--- NOTE | 2020-10-13 07:19 | NUR ---
Report given to MARLIN Mancilla
--- NOTE | 2020-10-13 08:59 | NUR ---
DR OSBORNE AT BEDSIDE. DISCUSSED WITH PROVIDER THAT RN AND RT ARE GOING TO TRY AND SWITCH HER OFF BIPAP TO SEE IF SHE CAN SWALLOW THIS MORNING. NOTIFIED PROVIDER OF MEDICATIONS PT TOOK PRIOR TO COMING TO THE HOSPITAL, PER REPORT. DR OSBORNE AT BEDSIDE TAKING PT OFF BIPAP AND RT PUTTING HER ON AIRVO. NOTED ON RA PT DOES DECREASE TO 80%. DR OSBORNE REMAINS AT BEDSIDE WHILE RT GETS AIRVO SET UP. PT ON OM MAXED OUT DURING THIS TIME AND INCREASES TO 88-90% POX.
--- NOTE | 2020-10-13 10:32 | NUR ---
DR KHOURY AT BEDSIDE FOR ASSESSMENT. DISCUSSED WITH DR KHOURY AND DR KNIGHT ABOUT HEPARIN GTT OR LOVENOX OR ELIQUIS. DR KNIGHT STATES HOLD OFF ON ELIQUIS TILL AFTER ECHO TOMORROW FOR EF RESULTS. DR KHOURY AGREES TO SWITCH FROM HEPARIN GTT TO LOVENOX.
[2020-10-13 11:49] LABS: ARTERIAL BLD GAS O2 SATURATION 91.8 % (92-100); ARTERIAL BLD GAS TCO2 CT 27.9; ARTERIAL BLOOD GAS BASE EXCESS 1.2 (-2-2); ARTERIAL BLOOD GAS HCO3 26.6 meq/L (22-26); ARTERIAL BLOOD GAS pH 7.39 (7.35-7.45)
--- NOTE | 2020-10-13 12:49 | NUR ---
SW met with patient to complete intake. Patient states that she lives with her Luis M [phone] and son Leland [phone] in [place], [place]. Patient appointed as DPOA-HC and son as Alt. Documentation reviewed, filled out by SW, signature by patient and witnessed by nurse of patient. Documenation copied for patient, and orginal placed in chart. Patient states that utilizes a walker, and receives assistance from her with ADL's. Patient provides that her PCP is Dr. Fisher, pharmacy is [facility], and she is able to afford her medications. Patient states that her plan is to go home upon DC, and would like more information on HH services. SW provided patient with HH documentation to review choices. Patient states that she and her family will review and decide once care is established in what is needed up on DC. SW will continue to follow Plan: Home with spouse with HH services
--- NOTE | 2020-10-13 18:10 | NUR ---
NOTIFIED RICCO KRISHNA OF PT'S REQUEST FOR SOMETHING FOR HER CASTE[place]. NEW ORDERS RECEIVED.
--- NOTE | 2020-10-13 19:15 | NUR ---
Received report from MARLIN Mancilla. Patient resting quietly in bed. All vitals within normal limits. Receiving 3.5L oxygen via nasal cannula, tolerating well. Eating meal at this time. No further needs noted.
[2020-10-14] VITALS (383 sets, daily range): BP systolic 90–123; BP diastolic 63–796; PULSE 71–86; TEMP 97.3–98.5; O2SAT 84–100
[2020-10-14 04:50] LABS: BASO % 0.3 % (0.0-2.0); EOS % 0.5 % (0-4.0); GRAN # 5.2 (1.4-6.5); GRAN % 59.1 % (42.2-75.2); HEMATOCRIT 38.7 % (37.0-47.0); HEMOGLOBIN 12.1 g/dl (12.5-16.0); LYMPH % 33.5 % (20.0-51.0); MEAN CELL VOLUME 92 fl (80.0-100.0); MEAN CORPUSCULAR HEMOGLOBIN 29 pg (27.0-31.0); MEAN CORPUSCULAR HGB CONC 31 g/dl (33.0-37.0); MEAN PLATELET VOLUME 12.5 fl (7.4-10.4); MONO # 0.6 (0.1-0.6); MONO % 6.3 % (1.7-9.3); PLATELET COUNT 172 K/mm3 (130-400); RED BLOOD COUNT 4.21 M/mm3 (4.10-5.30); REDCELL DISTRIBUTION WIDTH-CV 14.9 % (11.5-14.5)
[2020-10-14 04:59] LABS: CREATININE, serum 0.5 (0.52-1.25); POTASSIUM 3.4 mmol/L (3.4-5.0)
--- NOTE | 2020-10-14 14:00 | NUR ---
Patient up from ICU by bed. Alert and oriented. IVF infusing per orders. Patient on 4L O2 via NC. Denies pain at this time. Patient oriented to room. Nystatin ointment applied at skin folds. Denies needs at this time.
--- NOTE | 2020-10-14 15:07 | NUR ---
PT/OT notified ELVIS that the patient stays in her bed 99% of the time. Therapy states that the patient would benefit from SNF. They do not believe she would have the tolerance for IPR. Therapy is recommend SNF vs home with home health. ELVIS attempted to meet with the patient to discuss their recommendation. The patient was sound asleep and would not stay awake. ELVIS contacted the patient's , Luis M, to review the above. Luis M confirms that the patient is in bed most of the time. She does get up to go to the restroom, but he states that is has been a job for the patient to do so. Luis M reports that him or their son, Leland, are at home with the patient at all times. Bret reports that he believes the patient is going to want to go home and decline rehab. He states that he is headed up to the hospital later today and will talk to her again about rehab. ELVIS provided him with ELVIS's phone number. *Discharge plan: SNF vs home with family and home health*
--- NOTE | 2020-10-14 19:45 | NUR ---
Patient doing well throughout the day, droswy. Staff monitoring patient during meals as she falls asleep when she takes a bite and staff has to wake her up to finish chewing and swallowing. Fluids continue infusing per orders. Denies further needs at this time. Will report off to overnight caregiver.
--- NOTE | 2020-10-14 23:45 | NUR ---
Pt is little drowsy since i came around 7 pm. She was complaining of headeache, i gave her tylenol. she is on IV fluid. Will continue to monitor.
[2020-10-15] VITALS (7 sets, daily range): BP systolic 101–138; BP diastolic 56–80; PULSE 76–89; TEMP 98.5–99
[2020-10-15 07:34] LABS: BASO % 0.3 % (0.0-2.0); EOS # 0.1 (0.0-0.7); EOS % 0.7 % (0-4.0); GRAN # 4.7 (1.4-6.5); GRAN % 63.5 % (42.2-75.2); HEMATOCRIT 40.2 % (37.0-47.0); HEMOGLOBIN 12.8 g/dl (12.5-16.0); LYMPH # 2.2 (1.2-3.4); MEAN CELL VOLUME 91 fl (80.0-100.0); MEAN CORPUSCULAR HEMOGLOBIN 29 pg (27.0-31.0); MEAN CORPUSCULAR HGB CONC 32 g/dl (33.0-37.0); MEAN PLATELET VOLUME 12.1 fl (7.4-10.4); MONO # 0.5 (0.1-0.6); MONO % 6.1 % (1.7-9.3); PLATELET COUNT 196 K/mm3 (130-400); RED BLOOD COUNT 4.41 M/mm3 (4.10-5.30); REDCELL DISTRIBUTION WIDTH-CV 14.8 % (11.5-14.5)
[2020-10-15 07:48] LABS: CALCIUM 8.6 mg/dL (8.4-10.2); CREATININE, serum 0.52 (0.52-1.25)
--- NOTE | 2020-10-15 11:34 | NUR ---
The patient's , Luis M, contacted ELVIS and requested to speak to ELVIS in the patient's room. ELVIS met with the patient, Luis M, and their son. ELVIS discussed therapy's recommendation of benefiting from SNF vs going home with home health. The patient reports that she wants to go home. The patient reports that she considered IPR, but does not think that she can go the three hours of therapy a day. ELVIS informed her of the therapy difference at a SNF. The patient reports that she does not want to go to a SNF and would like to go home. Luis M and her son were supportive of her decision. Luis M reports that they are able to assist the patient at home and are working on making their house more handicap accessible. The patient and her family were agreeable to home health. ELVIS provided the patient and her family with [employer] list of home health agencies that serve [place]. The patient and her family would like some time to look over the list. The patient reports that the breaks on her rollator are broken and she would be interested in getting a new rollator. The patient is currently requiring around 3.5 liters of oxygen. She does not have home oxygen. The patient reports that if she needs oxygen, then she would prefer to get it from [facility]. She obtained her CPAP from them. She would also like to go ahead and just get the new rollator from [facility] as well. The patient's , Luis M, then contacted ELVIS back. Luis M reports that they chose [facility]. [facility] not go out to [place]. The patient then chose [facility]. ELVIS contacted and faxed a referral to Stefania at [facility]. Stefania reports that they should be able to accept the patient. *Discharge plan: home with family and home health*
--- NOTE | 2020-10-15 18:00 | NUR ---
Patient has been doing ok today. She sat up in the chair for a little while with lunch. No complaints of nausea. She stated she had increased pain after sitting up in the chair. She wanted her zanaflex given, spoke with hospitalist about restarting it and they did not start it. Gave tylenol once, she stated it helped but not enough. She stated her son is upset about her decision to go home instead of getting rehab somewhere else. Klonopin given for her anxiety. No other changes at this time. Call light within reach.
--- NOTE | 2020-10-15 21:30 | NUR ---
PT IN BED, ASKING FOR HS MEDS. SL TO LEFT AC FLUSHES WELL. HAS OXYGEN ON AT 4L/NC. HAS BEEN A 1 ASSIST TO BATHROOM.
--- NOTE | 2020-10-15 22:36 | NUR ---
AMBIEN AND KLONOPIN GIVEN. PLACED ON BIPAP FOR THE NIGHT.
[2020-10-16 03:08] VITALS: BP 116/62; PULSE 69; TEMP 97.6
--- NOTE | 2020-10-16 06:00 | NUR ---
WORE BIPAP ALL NIGHT. ASSISTED TO BATHROOM WITH WALKER, VOIDS AND BACK TO BED.
[2020-10-16 07:09] LABS: BASO % 0.4 % (0.0-2.0); EOS # 0.1 (0.0-0.7); EOS % 1.5 % (0-4.0); GRAN # 4.6 (1.4-6.5); GRAN % 61.9 % (42.2-75.2); HEMATOCRIT 41.7 % (37.0-47.0); HEMOGLOBIN 13.2 g/dl (12.5-16.0); LYMPH # 2.2 (1.2-3.4); LYMPH % 29.4 % (20.0-51.0); MEAN CELL VOLUME 91 fl (80.0-100.0); MEAN CORPUSCULAR HEMOGLOBIN 29 pg (27.0-31.0); MEAN CORPUSCULAR HGB CONC 32 g/dl (33.0-37.0); MEAN PLATELET VOLUME 12.5 fl (7.4-10.4); MONO # 0.5 (0.1-0.6); MONO % 6.4 % (1.7-9.3); PLATELET COUNT 202 K/mm3 (130-400); RED BLOOD COUNT 4.58 M/mm3 (4.10-5.30); REDCELL DISTRIBUTION WIDTH-CV 14.9 % (11.5-14.5)
[2020-10-16 07:13] LABS: CALCIUM 8.7 mg/dL (8.4-10.2); CREATININE, serum 0.56 (0.52-1.25); POTASSIUM 3.9 mmol/L (3.4-5.0)
[2020-10-16 07:26] VITALS: BP 111/65; PULSE 80; TEMP 98.7
--- NOTE | 2020-10-16 09:04 | NUR ---
An exercise oximetry was ordered. RT notified SW that the patient qualified for 3 liters of oxygen. SW contacted and faxed the patient's oxygen and rollator order to [place] [facility]. Awaiting delivery of equipment.
--- NOTE | 2020-10-16 11:00 | NUR ---
Patient is doing well this morning. She had a shower this am. Her is here. Denies pain and nausea this morning. She stated she is looking for to discharging today. Spoke with Dr Washburn and the plan is to discharge her today. She already worked with RT to figure out what her oxygen needs. No other changes at this time. Call light within reach.
[2020-10-16 11:08] VITALS: BP 109/73; PULSE 87; TEMP 99
[2020-10-16] MEDS ORDERED: PROVENTIL0.09 MG/A1 IH (11:52)
[2020-10-16] MEDS ORDERED: ELIQUIS 5MG PO (11:56)
[2020-10-16] MEDS ORDERED: ASPIRIN E.C. 8181 MG PO (11:58)
[2020-10-16] MEDS ORDERED: LIPITOR 80MG80 MG PO (11:58)
[2020-10-16] MEDS ORDERED: OXYGEN NASAL.CANN (12:09)
--- NOTE | 2020-10-16 14:23 | NUR ---
ELVIS attended clinical rounds. The patient is ready to d/c today. ELVIS followed up with the patient and presented and read the IM form outloud to her. The patient verbalized understanding and gave ELVIS approval to sign the form on her behalf. ELVIS provided her with a copy. The patient reports that she is needing CPAP supplies and plans to contact [facility] to get the new supplies. [facility] then delivered the oxygen to the patient's room. The patient's RN notified ELVIS that [facility] is telling the patient they cannot supply the new CPAP supplies without a prescription. ELVIS followed up with the patient. She states that she needs some new tubing and a mask. ELVIS notified Kamlesh at [facility]. Kamlesh reports that the patient has to have a prescription for the CPAP supplies from the provider that presribed the CPAP. Kamlesh reports that he would be able to give the patient some supplies to get her until she sees her PCP and gets a script from them. ELVIS updated the patient and her , Luis M. The patient and Luis M verbalized understanding. [facility] did not deliver the rollator. ELVIS notified Kamlesh at [facility]. Kamlesh reports that they will provide the rollator to the patient and her when they come to picking crew supervisor the CPAP supplies and the concentrator. ELVIS updated the patient and Luis M. They were agreeable to the plan. ELVIS updated the patient's RN. ELVIS updated the high school social studies tutor, Jennifer, with Dr. Mcgee about needing the script. Jennifer reports that the patient's next appointment with Dr. Mcgee is not until November. She reports that the patient would be able to get in sooner though if she saw one of the nurse practitioners. She forwarded ELVIS to scheduling. ELVIS secured the patient an appointment with Jessi Nurse Practitioner, next Wednesday, 10/22, at 1330. ELVIS notified the patient and her . ELVIS informed the community service officer of the appointment. The patient is to discharge back home with her family today, 10/16, with home health services for group home/PT/OT from [facility]. ELVIS notified and faxed d/c orders to Stefania at [facility]. No additional needs at this time.
--- NOTE | 2020-10-16 16:00 | NUR ---
Patient is discharging home. Discharge instructions discussed with patient. No questions verbalized. INT discontinued. His oxygen tank was delivered here. They are going to lease picker the rest of the supplies on the way home. Patients packed up belongings for patient. Explained when follow up appointments are and her CT scan. Explained what medications she is being discharged with. Copies of discharge instructions sent with patient. No other questiongs at this time. Patient is getting walked out via wheel chair by Madelaine OWENS.
[2020-10-31] MEDS ORDERED: FLAGYL500 MG PO (09:15)
[2020-10-31] MEDS ORDERED: OMNICEF 300MG300 MG PO (09:15)
[2020-10-31] MEDS ORDERED: ROXICODONE 55 MG/TAB PO (09:17)
== END 2020-10-16 16:30 | disposition home or self-care (01) | DRG 175 ==
LOC: COL.ER 21:11 → ICU 23:30 → SURG 10-14 13:30
PROVIDERS: Emergency Medicine; Internal Medicine Pulmonary Disease; Nurse Practitioner Family; Physician Assistant; ADMIT Hospitalist
PROC: 5A09457 Assistance with Respiratory Ventilation, 24-96 Consecutive Hours, Continuous Positive Airway Pressure (ICD-10-PCS; principal; 2020-10-13)
DX: I26.99 Other pulmonary embolism without acute cor pulmonale (principal); J96.02 Acute respiratory failure with hypercapnia; I21.A1 Myocardial infarction type 2; J96.01 Acute respiratory failure with hypoxia; G92 Toxic encephalopathy; Z68.42 Body mass index [BMI] 45.0-49.9, adult; Z90.710 Acquired absence of both cervix and uterus; I45.10 Unspecified right bundle-branch block; Z90.49 Acquired absence of other specified parts of digestive tract; E66.01 Morbid (severe) obesity due to excess calories; K21.9 Gastro-esophageal reflux disease without esophagitis; F32.9 Major depressive disorder, single episode, unspecified; G47.33 Obstructive sleep apnea (adult) (pediatric); G89.29 Other chronic pain; F17.210 Nicotine dependence, cigarettes, uncomplicated; J44.9 Chronic obstructive pulmonary disease, unspecified; M79.7 Fibromyalgia; Z85.09 Personal history of malignant neoplasm of other digestive organs; I65.29 Occlusion and stenosis of unspecified carotid artery; T50.995A Adverse effect of other drugs, medicaments and biological substances, initial encounter
CPT/HCPCS: 99232-AI; 99239; A4314; A9284; J0696; J1100; J1644; J1650; J2405; J2765; J7030; Q9967

== ENCOUNTER 2020-11-05 10:30 | Emergency (ER) | payer MEDICARE, MEDICAID ==
[~2020-11-05] VITALS: Ht 165.1 cm; Wt 113.6 kg
[~2020-11-05 10:30] MED LIST changes: +ASPIRIN E.C. 8181 MG PO; +ELIQUIS 5MG PO; +FLAGYL500 MG PO; +LIPITOR 80MG80 MG PO; +OXYGEN NASAL.CANN; +REQUIP2 MG PO; +ROXICODONE 55 MG/TAB PO; +RT SPIRIVA18 MCG IH; +XALATAN EYE DROPS OU; +ZANAFLEX CAPSULE4 MG PO; +ZOLOFT 100MG100 MG PO
[2020-11-05 10:37] VITALS: TEMP 98.3
[2020-11-05 11:01] LABS: BASO % 0.2 % (0.0-2.0); EOS # 0.3 (0.0-0.7); EOS % 2.7 % (0-4.0); GRAN % 68.1 % (42.2-75.2); HEMATOCRIT 41.6 % (37.0-47.0); LYMPH # 2.2 (1.2-3.4); LYMPH % 21.8 % (20.0-51.0); MEAN CELL VOLUME 91 fl (80.0-100.0); MEAN CORPUSCULAR HEMOGLOBIN 29 pg (27.0-31.0); MEAN CORPUSCULAR HGB CONC 31 g/dl (33.0-37.0); MONO # 0.6 (0.1-0.6); MONO % 5.8 % (1.7-9.3); PLATELET COUNT 309 K/mm3 (130-400); RED BLOOD COUNT 4.55 M/mm3 (4.10-5.30); REDCELL DISTRIBUTION WIDTH-CV 14.6 % (11.5-14.5)
[2020-11-05 11:11] LABS: ALANINE AMINOTRANSFERASE 21 U/L (4-34); ALBUMIN 3.9 gm/dL (3.5-5.0); ALKALINE PHOSPHATASE 108 U/L (50-136); ANION GAP 3 mmol/L (7-16); AST,SGOT 53 U/L (15-37); BILIRUBIN,TOTAL 0.2 mg/dL (0.0-1.0); BLOOD UREA NITROGEN 10 mg/dL (7-17); CALCIUM 9.1 mg/dL (8.4-10.2); CARBON DIOXIDE 34 mmol/L (22-30); CHLORIDE 104 mmol/L (98-107); CREATININE, serum 0.51 (0.52-1.25); GLUCOSE 107 mg/dL (74-106); POTASSIUM 3.9 mmol/L (3.4-5.0); SODIUM 140 mmol/L (137-145); TOTAL PROTEIN 7.6 gm/dL (6.4-8.2)
[2020-11-05 11:22] LABS: LIPASE 86 U/L (23-300)
[2020-11-05 11:24] LABS: TROPONIN-I < 0.012 ng/mL (0.000-0.035)
[2020-11-05 13:18] LABS: COLLECTION METHOD CATHETER
[2020-11-05 13:32] LABS: MUCOUS Present /lpf; PH 6 (5-8); SQUAMOUS EPITHELIAL None Seen /hpf; URINE APPEARANCE Hazy; URINE BACTERIA None Seen /hpf; URINE BILIRUBIN Negative (NEGATIVE); URINE BLOOD Negative (NEGATIVE); URINE COLOR Yellow; URINE GLUCOSE Negative (NEGATIVE); URINE KETONE Negative (NEGATIVE); URINE LEUKOCYTE ESTERASE Trace (NEGATIVE); URINE NITRATE Negative (NEGATIVE); URINE PROTEIN(semi-quant) Negative (NEGATIVE); URINE RBC 0-2 /hpf; URINE UROBILINOGEN Negative (NEGATIVE)
[2020-11-05 14:21] VITALS: BP 101/56; PULSE 80
[2020-11-05] MEDS ORDERED: NORCO 325 MG-51 TAB PO (14:21)
== END 2020-11-05 14:30 | disposition home or self-care (01) ==
LOC: COL.ER 10:30
PROVIDERS: Emergency Medicine
DX: K81.0 Acute cholecystitis (principal); I10 Essential (primary) hypertension; E78.5 Hyperlipidemia, unspecified; E11.40 Type 2 diabetes mellitus with diabetic neuropathy, unspecified; Z20.822 Contact with and (suspected) exposure to COVID-19; Z86.711 Personal history of pulmonary embolism; Z86.718 Personal history of other venous thrombosis and embolism; Z79.01 Long term (current) use of anticoagulants; Z79.82 Long term (current) use of aspirin; Z79.84 Long term (current) use of oral hypoglycemic drugs; Z88.6 Allergy status to analgesic agent; Z88.8 Allergy status to other drugs, medicaments and biological substances; Z79.899 Other long term (current) drug therapy

== ENCOUNTER 2020-12-13 10:58 | Emergency (ER) | payer MEDICARE, MEDICAID ==
[~2020-12-13] VITALS: Ht 165.1 cm; Wt 110.0 kg
[2020-12-13 12:08] LABS: BASO % 0.3 % (0.0-2.0); EOS # 0.1 (0.0-0.7); EOS % 0.5 % (0-4.0); GRAN # 10.2 (1.4-6.5); GRAN % 85.6 % (42.2-75.2); HEMATOCRIT 42.4 % (37.0-47.0); HEMOGLOBIN 13.4 g/dl (12.5-16.0); LYMPH # 1.2 (1.2-3.4); LYMPH % 10.2 % (20.0-51.0); MEAN CELL VOLUME 91 fl (80.0-100.0); MEAN CORPUSCULAR HEMOGLOBIN 29 pg (27.0-31.0); MEAN CORPUSCULAR HGB CONC 32 g/dl (33.0-37.0); MEAN PLATELET VOLUME 12.1 fl (7.4-10.4); MONO # 0.4 (0.1-0.6); MONO % 3.1 % (1.7-9.3); PLATELET COUNT 183 K/mm3 (130-400); RED BLOOD COUNT 4.68 M/mm3 (4.10-5.30); REDCELL DISTRIBUTION WIDTH-CV 14.5 % (11.5-14.5)
[2020-12-13 12:14] LABS: ALBUMIN 4.1 gm/dL (3.5-5.0); BILIRUBIN,TOTAL 0.3 mg/dL (0.0-1.0); C-REACTIVE PROTEIN 2.4 mg/dL (0.0-0.9); CALCIUM 8.7 mg/dL (8.4-10.2); CREATININE, serum 0.55 (0.52-1.25); POTASSIUM 3.8 mmol/L (3.4-5.0); TOTAL PROTEIN 7.6 gm/dL (6.4-8.2)
[2020-12-13] MEDS ORDERED: PERCOCET 325 MG1 TA2 PO (13:54)
[2020-12-13] MEDS ORDERED: FLAGYL500 MG PO (13:55)
[2020-12-13] MEDS ORDERED: CEFTIN500 MG PO (13:55)
[2020-12-13 14:15] VITALS: BP 121/64; PULSE 84; TEMP 98.3
== END 2020-12-13 14:20 | disposition home or self-care (01) ==
LOC: COL.ER 10:58
PROVIDERS: Nurse Practitioner Family
DX: K81.1 Chronic cholecystitis (principal); J98.01 Acute bronchospasm; E66.01 Morbid (severe) obesity due to excess calories; J44.9 Chronic obstructive pulmonary disease, unspecified; G89.29 Other chronic pain; M54.9 Dorsalgia, unspecified; Z86.711 Personal history of pulmonary embolism; Z79.01 Long term (current) use of anticoagulants; Z86.718 Personal history of other venous thrombosis and embolism; Z87.891 Personal history of nicotine dependence; Z90.710 Acquired absence of both cervix and uterus; Z90.49 Acquired absence of other specified parts of digestive tract; Z88.6 Allergy status to analgesic agent; Z88.0 Allergy status to penicillin; Z88.2 Allergy status to sulfonamides; Z79.891 Long term (current) use of opiate analgesic
CPT/HCPCS: C9113; J2270; J2405; J7030

== ENCOUNTER 2021-03-13 10:53 | Inpatient (IN) | payer MEDICARE, MEDICAID ==
[~2021-03-13] VITALS: Ht 172.7 cm; Wt 75.8 kg
[2021-03-13] VITALS (241 sets, daily range): BP systolic 102–111; BP diastolic 62–73; PULSE 75–85; TEMP 98; O2SAT 93–100
[~2021-03-13 10:53] MED LIST changes: +CEFTIN500 MG PO
[2021-03-13 11:29] LABS: GRAN # 2.4 K/mm3 (1.4-6.5); GRAN % 73.8 % (42.2-75.2); LYMPH # 0.6 K/mm3 (1.2-3.4); LYMPH % 18.6 % (20.0-51.0); MEAN CELL VOLUME 86 fl (80.0-100.0); MEAN CORPUSCULAR HEMOGLOBIN 28 pg (27.0-31.0); MEAN CORPUSCULAR HGB CONC 33 g/dl (33.0-37.0); MEAN PLATELET VOLUME 12.2 fl (7.4-10.4); MONO # 0.2 K/mm3 (0.1-0.6); PLATELET COUNT 109 K/mm3 (130-400); RED BLOOD COUNT 4.28 M/mm3 (4.10-5.30); REDCELL DISTRIBUTION WIDTH-CV 15.1 % (11.5-14.5)
[2021-03-13 11:30] LABS: HEMATOCRIT 36.8 % (37.0-47.0)
[2021-03-13 11:48] LABS: ALBUMIN 2.6 gm/dL (3.5-5.0); BILIRUBIN,TOTAL 0.4 mg/dL (0.2-1.2); CALCIUM 8.2 mg/dL (8.4-10.2); CREATININE, serum 0.66 mg/dL (0.57-1.11); TOTAL PROTEIN 6.5 gm/dL (6.2-8.1)
[2021-03-13 13:09] LABS: ARTERIAL BLD GAS O2 SATURATION 91.3 % (92-100); ARTERIAL BLD GAS TCO2 CT 26.6; ARTERIAL BLOOD GAS BASE EXCESS 1.3 (-2-2); ARTERIAL BLOOD GAS HCO3 25.5 meq/L (22-26); ARTERIAL BLOOD GAS PCO2 38.6 mmHg (35-45); ARTERIAL BLOOD GAS PO2 60.1 mmHg (80-100); ARTERIAL BLOOD GAS pH 7.44 (7.35-7.45)
[2021-03-13 13:49] LABS: MUCOUS Present (NOT PRESENT); PH 5 (5-8); SQUAMOUS EPITHELIAL None Seen /hpf (0-10); URINE APPEARANCE Hazy (CLEAR/HAZY); URINE BACTERIA Many (NONE SEEN); URINE BILIRUBIN Negative (NEGATIVE); URINE BLOOD Negative (NEGATIVE); URINE COLOR Yellow (YELLOW); URINE GLUCOSE Negative (NEGATIVE); URINE KETONE Negative (NEGATIVE); URINE LEUKOCYTE ESTERASE 3+ (NEGATIVE); URINE NITRATE Positive (NEGATIVE); URINE PROTEIN(semi-quant) 1+ (NEGATIVE); URINE RBC 0-2 /hpf (0-2); URINE UROBILINOGEN Negative (NEGATIVE)
[2021-03-13 13:52] LABS: COLLECTION METHOD CATHETER
[2021-03-13] MEDS ORDERED: KLONOPIN 1MG1 MG PO (16:32)
--- NOTE | 2021-03-13 19:32 | NUR ---
Received report from MARLIN Melendez. Patient resting in bed on bipap at 100%. All VSS. Patient on levophed gtt at 0.05mcg/kg/min. Patient in airborne/contact isolation d/t positive covid status. No concerns or complaints noted at this time. RT at bedside at this time. Will resume care of patient at this time.
[2021-03-14] VITALS (661 sets, daily range): BP systolic 95–130; BP diastolic 57–80; PULSE 65–83; TEMP 97.5–98.4; O2SAT 73–100
[2021-03-14 03:23] LABS: ARTERIAL BLD GAS O2 SATURATION 96.9 % (92-100); ARTERIAL BLD GAS TCO2 CT 33.1; ARTERIAL BLOOD GAS BASE EXCESS 6.1 (-2-2); ARTERIAL BLOOD GAS HCO3 31.6 meq/L (22-26); ARTERIAL BLOOD GAS PCO2 49.4 mmHg (35-45); ARTERIAL BLOOD GAS PO2 89.9 mmHg (80-100); ARTERIAL BLOOD GAS pH 7.42 (7.35-7.45)
[2021-03-14 04:53] LABS: BASO % 0.4 % (0.0-2.0); GRAN # 1.9 K/mm3 (1.4-6.5); GRAN % 71.9 % (42.2-75.2); HEMOGLOBIN 11.4 g/dl (12.5-16.0); LYMPH # 0.5 K/mm3 (1.2-3.4); LYMPH % 19.6 % (20.0-51.0); MEAN CELL VOLUME 87 fl (80.0-100.0); MEAN CORPUSCULAR HEMOGLOBIN 28 pg (27.0-31.0); MEAN CORPUSCULAR HGB CONC 33 g/dl (33.0-37.0); MEAN PLATELET VOLUME 12.4 fl (7.4-10.4); MONO # 0.2 K/mm3 (0.1-0.6); MONO % 7.3 % (1.7-9.3); PLATELET COUNT 104 K/mm3 (130-400); RED BLOOD COUNT 4.04 M/mm3 (4.10-5.30); REDCELL DISTRIBUTION WIDTH-CV 14.9 % (11.5-14.5)
[2021-03-14 05:06] LABS: CALCIUM 8.2 mg/dL (8.4-10.2); CREATININE, serum 0.58 mg/dL (0.57-1.11); POTASSIUM 3.7 mmol/L (3.5-4.5)
--- NOTE | 2021-03-14 08:00 | NUR ---
RECIEVED REPORT FROM NGUYEN ISAAC. PATIENT IS RESTING IN BED ON BIPAP AT 65%. PATIENT APPEARS IN NO ACUTE DISTRESS. STATES THAT SHE HAS NEW ONSET CHEST PAIN. DR. KHOURY NOTIFIED. PHYSICIAN PUT IN ORDERS FOR ECHO, TROP, AND EKG. SEE RESULTS. WILL CONTINUE TO MONITOR FOR WORSENING CONDITION.
--- NOTE | 2021-03-14 11:51 | NUR ---
CALLED PATIENTS TO GIVE CLINICAL UPDATE. NO ANSWER.
--- NOTE | 2021-03-14 13:50 | NUR ---
Patient currently covid positive and on BiPap. Contact made with the patient's Luis M. Luis M states that they live at home in [place] and that there son lives with them. Luis M states that he and his son have to help the patient complete most of her activities of daily living and that the patient utilizes a walker to help her assist with ambulation. Patient is on NC oxygen 24/7 and that her baseline is 4L, which is supplied through [facility]. PCP is Dr. Durham and she utilizes [facility] for perscriptions with no cost difficulty. Patient has a DPOA-HC on file listing both her and her son listed as agents. Luis M states that the patient also have Tamy IBRAHIM established for PT.
[2021-03-15] VITALS (654 sets, daily range): BP systolic 91–106; BP diastolic 58–77; PULSE 66–80; TEMP 97.5–98.1; O2SAT 72–100
[2021-03-15 05:06] LABS: HEMOGLOBIN 11.5 g/dl (12.5-16.0); MEAN CELL VOLUME 87 fl (80.0-100.0); MEAN CORPUSCULAR HEMOGLOBIN 29 pg (27.0-31.0); MEAN CORPUSCULAR HGB CONC 33 g/dl (33.0-37.0); MEAN PLATELET VOLUME 12.8 fl (7.4-10.4); PLATELET COUNT 120 K/mm3 (130-400); RED BLOOD COUNT 4.04 M/mm3 (4.10-5.30); REDCELL DISTRIBUTION WIDTH-CV 14.8 % (11.5-14.5)
[2021-03-15 05:07] LABS: HEMATOCRIT 35.2 % (37.0-47.0)
[2021-03-15 05:18] LABS: C-REACTIVE PROTEIN 4.56 mg/dL (0.00-0.50); CALCIUM 8.9 mg/dL (8.4-10.2); CREATININE, serum 0.57 mg/dL (0.57-1.11); POTASSIUM 3.9 mmol/L (3.5-4.5)
[2021-03-15] MEDS ORDERED: IMITREX 6M6 MG/0.5 M (14:40)
[2021-03-15] MEDS ORDERED: IMITREX ST6 MG/0.51 SQ (14:41)
--- NOTE | 2021-03-15 16:20 | NUR ---
Provided education on benefits of self-proning; and agreeable to try . Assisted with turning and tolerated well; will continue to monitor.
--- NOTE | 2021-03-15 20:00 | NUR ---
PT SITTING UP IN BED, DENIES PAIN OR SOA. STATES NO NEEDS OR CONCERNS. L F/A PIV HARD TO FLUSH, REMOVED WITH TIP INTACT. PRESSURE HELD, BANDAGE APPLIED. PICC LINE FLUSHES WELL WITH BLOOD RETURN. PT ON AIRVO AT THIS TIME, VSS. WILL CONTINUE TO MONITOR.
[2021-03-16] VITALS (717 sets, daily range): BP systolic 98–117; BP diastolic 56–71; PULSE 63–76; TEMP 97.4–97.8; O2SAT 66–100
[2021-03-16 06:16] LABS: GRAN # 5.2 K/mm3 (1.4-6.5); GRAN % 78.9 % (42.2-75.2); HEMOGLOBIN 10.9 g/dl (12.5-16.0); LYMPH # 0.8 K/mm3 (1.2-3.4); MEAN CELL VOLUME 90 fl (80.0-100.0); MEAN CORPUSCULAR HEMOGLOBIN 29 pg (27.0-31.0); MEAN CORPUSCULAR HGB CONC 32 g/dl (33.0-37.0); MEAN PLATELET VOLUME 13.1 fl (7.4-10.4); MONO # 0.6 K/mm3 (0.1-0.6); MONO % 8.8 % (1.7-9.3); PLATELET COUNT 144 K/mm3 (130-400); RED BLOOD COUNT 3.83 M/mm3 (4.10-5.30); REDCELL DISTRIBUTION WIDTH-CV 14.6 % (11.5-14.5)
[2021-03-16 06:39] LABS: ALBUMIN 2.6 gm/dL (3.5-5.0); BILIRUBIN,TOTAL 0.4 mg/dL (0.2-1.2); C-REACTIVE PROTEIN 2.36 mg/dL (0.00-0.50); CALCIUM 8.8 mg/dL (8.4-10.2); CREATININE, serum 0.55 mg/dL (0.57-1.11); POTASSIUM 3.7 mmol/L (3.5-4.5); TOTAL PROTEIN 5.7 gm/dL (6.2-8.1)
[2021-03-16 06:45] LABS: HEMATOCRIT 34.4 % (37.0-47.0)
--- NOTE | 2021-03-16 15:21 | NUR ---
Resting in bed with eyes shut; VS stable. No concerns or complaints at this time.
[2021-03-17] VITALS (698 sets, daily range): BP systolic 100–116; BP diastolic 60–74; PULSE 63–78; TEMP 97.6–98.8; O2SAT 73–100
[2021-03-17 07:38] LABS: HEMOGLOBIN 10.9 g/dl (12.5-16.0); MEAN CELL VOLUME 87 fl (80.0-100.0); MEAN CORPUSCULAR HEMOGLOBIN 28 pg (27.0-31.0); MEAN CORPUSCULAR HGB CONC 32 g/dl (33.0-37.0); MEAN PLATELET VOLUME 12.7 fl (7.4-10.4); PLATELET COUNT 159 K/mm3 (130-400); RED BLOOD COUNT 3.94 M/mm3 (4.10-5.30); REDCELL DISTRIBUTION WIDTH-CV 14.5 % (11.5-14.5)
[2021-03-17 07:41] LABS: HEMATOCRIT 34.4 % (37.0-47.0)
[2021-03-17 07:42] LABS: CALCIUM 8.7 mg/dL (8.4-10.2); CREATININE, serum 0.54 mg/dL (0.57-1.11); POTASSIUM 3.9 mmol/L (3.5-4.5)
[2021-03-17 08:00] LABS: BAND 3 % (0-10); LYMPHOCYTE 11 % (20.0-51.0); NEUTROPHILS 75 % (42.0-75.2); PLATELET ESTIMATE NORMAL (NORMAL)
--- NOTE | 2021-03-17 08:30 | NUR ---
Patient tends to breath through her mouth and 02 saturations will intermittently drop to the low 80's. When patient is reminded to breath through her nose and take a few deep breaths o2 quickly returns to the low 90's. Will encourage BIPAP when sleeping to help maintain o2 saturations greater than 90%.
--- NOTE | 2021-03-17 14:30 | NUR ---
Napping while wearing the BIPAP; tolerating well.
--- NOTE | 2021-03-17 23:15 | NUR ---
Patient transfers to [facility] woth SBA from this RN for BM. While up on commode, patient chnages her mind and is now agreeable to washing up and letting RN change linens. Bed changed. Assisted patient with bath. Hair combed and shampooed x2 once all knots combed out of hair and hair braided per patient request. Skin lotioned, cath care and ashley care provided. Returns to bed without difficulty and monitors reapplied. Patient agreeable to putting BiPAP on now and encouraged to rest.
[2021-03-18] VITALS (765 sets, daily range): BP systolic 99–110; BP diastolic 67–74; PULSE 71–83; TEMP 98–98.5; O2SAT 72–99
[2021-03-18 05:49] LABS: HEMOGLOBIN 11.4 g/dl (12.5-16.0); MEAN CELL VOLUME 87 fl (80.0-100.0); MEAN CORPUSCULAR HEMOGLOBIN 28 pg (27.0-31.0); MEAN CORPUSCULAR HGB CONC 32 g/dl (33.0-37.0); MEAN PLATELET VOLUME 12.4 fl (7.4-10.4); PLATELET COUNT 191 K/mm3 (130-400); RED BLOOD COUNT 4.12 M/mm3 (4.10-5.30); REDCELL DISTRIBUTION WIDTH-CV 14.6 % (11.5-14.5)
[2021-03-18 05:52] LABS: HEMATOCRIT 35.7 % (37.0-47.0)
[2021-03-18 06:11] LABS: ALBUMIN 2.7 gm/dL (3.5-5.0); BILIRUBIN,TOTAL 0.6 mg/dL (0.2-1.2); C-REACTIVE PROTEIN 2.06 mg/dL (0.00-0.50); CALCIUM 9.2 mg/dL (8.4-10.2); CREATININE, serum 0.57 mg/dL (0.57-1.11); POTASSIUM 4.1 mmol/L (3.5-4.5); TOTAL PROTEIN 6.1 gm/dL (6.2-8.1)
[2021-03-18 06:25] LABS: ANISOCYTOSIS 1+; BAND 2 % (0-10); HYPOCHROMIA 1+; LYMPHOCYTE 20 % (20.0-51.0); METAMYELOCYTE 2 % (0-0); MICROCYTOSIS 1+; NEUTROPHILS 71 % (42.0-75.2); POIKILOCYTOSIS 1+
[2021-03-18 06:26] LABS: OVALOCYTES 1+; PLATELET ESTIMATE NORMAL (NORMAL)
--- NOTE | 2021-03-18 08:30 | NUR ---
Patient is in bed sleeping at this time. Will encourage her to get out of bed into a recliner for a little while. VS WNL. She is on AirVo at this time.
--- NOTE | 2021-03-18 10:16 | NUR ---
Patient is currently on 60 liters of oxygen. PT/OT have been ordered. SW contacted [facility] and faxed them clinical updates.
--- NOTE | 2021-03-18 12:00 | NUR ---
Patient is up to chair and doing well. AirVo currently at 60L/85%
--- NOTE | 2021-03-18 17:30 | NUR ---
Patient slept for good part of the afternoon. I had encouraged use of Bipap, but she refused. She is now eating supper and doing well. AirVo set to 60L/80%
[2021-03-19] VITALS (670 sets, daily range): BP systolic 102–120; BP diastolic 60–76; PULSE 71–92; TEMP 97.5–98.6; O2SAT 54–99
--- NOTE | 2021-03-19 01:06 | NUR ---
Patient gave this RN a silver colored ring to lock up with security. This RN placed ring inside of plastic cup with patient sticker and stuck inside of valuable belongings bag. supervisor wood room notified and brought belongings to be locked up.
[2021-03-19 05:08] LABS: BASO % 0.2 % (0.0-2.0); GRAN # 7.2 K/mm3 (1.4-6.5); GRAN % 78.9 % (42.2-75.2); HEMATOCRIT 38.5 % (37.0-47.0); HEMOGLOBIN 12.2 g/dl (12.5-16.0); LYMPH # 1.2 K/mm3 (1.2-3.4); LYMPH % 12.5 % (20.0-51.0); MEAN CELL VOLUME 88 fl (80.0-100.0); MEAN CORPUSCULAR HEMOGLOBIN 28 pg (27.0-31.0); MEAN CORPUSCULAR HGB CONC 32 g/dl (33.0-37.0); MEAN PLATELET VOLUME 12.5 fl (7.4-10.4); MONO # 0.7 K/mm3 (0.1-0.6); MONO % 7.1 % (1.7-9.3); PLATELET COUNT 245 K/mm3 (130-400); RED BLOOD COUNT 4.37 M/mm3 (4.10-5.30); REDCELL DISTRIBUTION WIDTH-CV 14.8 % (11.5-14.5)
[2021-03-19 05:20] LABS: ALBUMIN 2.8 gm/dL (3.5-5.0); BILIRUBIN,TOTAL 0.5 mg/dL (0.2-1.2); C-REACTIVE PROTEIN 3.26 mg/dL (0.00-0.50); CREATININE, serum 0.65 mg/dL (0.57-1.11); POTASSIUM 3.6 mmol/L (3.5-4.5); TOTAL PROTEIN 6.4 gm/dL (6.2-8.1)
[2021-03-19 05:23] LABS: ALBUMIN 2.9 gm/dL (3.5-5.0); CALCIUM 8.7 mg/dL (8.4-10.2); CREATININE, serum 0.63 mg/dL (0.57-1.11); MAGNESIUM 1.4 mg/dL (1.6-2.6); PHOSPHOROUS 4.4 mg/dL (2.3-4.7); POTASSIUM 3.8 mmol/L (3.5-4.5)
[2021-03-19 05:45] LABS: ARTERIAL BLD GAS O2 SATURATION 91.1 % (92-100); ARTERIAL BLD GAS TCO2 CT 34.3; ARTERIAL BLOOD GAS BASE EXCESS 7.9 (-2-2); ARTERIAL BLOOD GAS HCO3 32.9 meq/L (22-26); ARTERIAL BLOOD GAS PCO2 47.2 mmHg (35-45); ARTERIAL BLOOD GAS PO2 61.8 mmHg (80-100); ARTERIAL BLOOD GAS pH 7.46 (7.35-7.45)
--- NOTE | 2021-03-19 11:00 | NUR ---
Reports to nurse that she is "not feeling well" States she is having burning pains in her arms. Patient plays on her phone for hours at a time each day. Discussed the possibility that the repetitive movements on her phone could be contributing to the arm and hand pain. Patient does not feel that this is related. VIKTORIYA dodd provided and will re-assess for effectiveness.
--- NOTE | 2021-03-19 14:06 | NUR ---
Updated Dr. Chung on patient status; all questions and concerns addressed at this time.
--- NOTE | 2021-03-19 15:43 | NUR ---
PT at bedside working with patient. Stood at the side of the bed and marched in place. Up for approximately 8 min. Tolerated well.
--- NOTE | 2021-03-19 19:30 | NUR ---
Assessment complete and charted. Patient on airvo current. Denies needs at this time. Call light in reach.
[2021-03-20] VITALS (223 sets, daily range): BP systolic 93–103; BP diastolic 61–77; PULSE 66–88; TEMP 97.1–98.5; O2SAT 84–97
[2021-03-20 05:51] LABS: BASO % 0.1 % (0.0-2.0); EOS % 0.4 % (0-4.0); GRAN # 6.3 K/mm3 (1.4-6.5); GRAN % 74.6 % (42.2-75.2); HEMOGLOBIN 11.9 g/dl (12.5-16.0); LYMPH # 1.3 K/mm3 (1.2-3.4); LYMPH % 15.7 % (20.0-51.0); MEAN CORPUSCULAR HEMOGLOBIN 28 pg (27.0-31.0); MEAN CORPUSCULAR HGB CONC 31 g/dl (33.0-37.0); MEAN PLATELET VOLUME 12.1 fl (7.4-10.4); MONO # 0.7 K/mm3 (0.1-0.6); MONO % 7.8 % (1.7-9.3); PLATELET COUNT 280 K/mm3 (130-400); RED BLOOD COUNT 4.21 M/mm3 (4.10-5.30); REDCELL DISTRIBUTION WIDTH-CV 15.3 % (11.5-14.5)
[2021-03-20 05:55] LABS: MEAN CELL VOLUME 93 fl (80.0-100.0)
--- NOTE | 2021-03-20 06:19 | NUR ---
Patient had uneventful night. On bipap entire night. Resting in bed this AM. Call light in reach.
[2021-03-20 06:21] LABS: ALBUMIN 2.7 gm/dL (3.5-5.0); BILIRUBIN,TOTAL 0.6 mg/dL (0.2-1.2); C-REACTIVE PROTEIN 2.14 mg/dL (0.00-0.50); CALCIUM 9.1 mg/dL (8.4-10.2); CREATININE, serum 0.57 mg/dL (0.57-1.11); MAGNESIUM 1.6 mg/dL (1.6-2.6); PHOSPHOROUS 3.5 mg/dL (2.3-4.7); POTASSIUM 3.7 mmol/L (3.5-4.5); TOTAL PROTEIN 6.3 gm/dL (6.2-8.1)
--- NOTE | 2021-03-20 07:13 | NUR ---
Report given to MARLIN Melendez
[2021-03-21] VITALS: BP 100/61; PULSE 82; TEMP 98.6
[2021-03-21 04:00] VITALS: BP 103/66; PULSE 82; TEMP 97.7
[2021-03-21 05:09] LABS: ALBUMIN 2.7 gm/dL (3.5-5.0); BILIRUBIN,TOTAL 0.5 mg/dL (0.2-1.2); C-REACTIVE PROTEIN 3.19 mg/dL (0.00-0.50); CALCIUM 9.9 mg/dL (8.4-10.2); POTASSIUM 3.4 mmol/L (3.5-4.5); TOTAL PROTEIN 6.3 gm/dL (6.2-8.1)
[2021-03-21 05:20] LABS: GRAN % 76.1 % (42.2-75.2); HEMATOCRIT 38.7 % (37.0-47.0); HEMOGLOBIN 12.1 g/dl (12.5-16.0); LYMPH % 14.5 % (20.0-51.0); MEAN CELL VOLUME 90 fl (80.0-100.0); MEAN CORPUSCULAR HEMOGLOBIN 28 pg (27.0-31.0); MEAN CORPUSCULAR HGB CONC 31 g/dl (33.0-37.0); MONO % 7.8 % (1.7-9.3); PLATELET COUNT 314 K/mm3 (130-400); RED BLOOD COUNT 4.32 M/mm3 (4.10-5.30)
[2021-03-21 05:29] LABS: CREATININE, serum 0.66 mg/dL (0.57-1.11)
[2021-03-21 06:11] LABS: BASO % 0.1 % (0.0-2.0); EOS % 0.2 % (0-4.0); GRAN # 6.4 K/mm3 (1.4-6.5); LYMPH # 1.2 K/mm3 (1.2-3.4); MEAN PLATELET VOLUME 12.4 fl (7.4-10.4); MONO # 0.7 K/mm3 (0.1-0.6); REDCELL DISTRIBUTION WIDTH-CV 14.9 % (11.5-14.5)
[2021-03-21 08:00] VITALS: BP 104/66; PULSE 91; TEMP 97.9
[2021-03-21 11:32] VITALS: BP 98/72; PULSE 80; TEMP 98.4
--- NOTE | 2021-03-21 15:59 | NUR ---
Overnight Cashier contacted patient's and left a voicemail.
[2021-03-21 16:00] VITALS: BP 105/64; PULSE 81; TEMP 98.5
[2021-03-21 20:00] VITALS: BP 101/64; PULSE 87; TEMP 98.6
--- NOTE | 2021-03-21 21:30 | NUR ---
PT SITTING UP IN BED, PM MEDS GIVEN. REPORTS GENERALIZED PAIN AT 6/10. NORCO GIVEN WITH MEDS PER PRN ORDER. PT STATES HAD A ROUGH DAY FROM BEING AWOKEN VERY EARLY, BUT ABLE TO NAP SOME. CURRENTLY ON AIRVO, WILL CALL FOR BIPAP WHEN READY FOR BED. ENCOURAGED PT TO ROLL IN BED. WILL CONTINUE TO MONITOR.
--- NOTE | 2021-03-21 23:15 | NUR ---
PT REQUESTS BIPAP ON FOR SLEEP. HELPED TO PLACE AND REPOSITION IN BED FOR COMFORT. VSS, PT REPORTS NO OTHER NEEDS. WILL CONTINUE TO MONITOR.
[2021-03-22] VITALS (421 sets, daily range): BP systolic 90–117; BP diastolic 61–93; PULSE 69–81; TEMP 98.4–98.7; O2SAT 84–99
[2021-03-22 05:10] LABS: BASO % 0.1 % (0.0-2.0); EOS % 0.5 % (0-4.0); GRAN # 6.2 K/mm3 (1.4-6.5); GRAN % 76.9 % (42.2-75.2); HEMATOCRIT 37.2 % (37.0-47.0); HEMOGLOBIN 11.8 g/dl (12.5-16.0); LYMPH # 1.2 K/mm3 (1.2-3.4); LYMPH % 14.9 % (20.0-51.0); MEAN CELL VOLUME 88 fl (80.0-100.0); MEAN CORPUSCULAR HEMOGLOBIN 28 pg (27.0-31.0); MEAN CORPUSCULAR HGB CONC 32 g/dl (33.0-37.0); MEAN PLATELET VOLUME 11.8 fl (7.4-10.4); MONO # 0.5 K/mm3 (0.1-0.6); MONO % 6.6 % (1.7-9.3); PLATELET COUNT 294 K/mm3 (130-400); RED BLOOD COUNT 4.25 M/mm3 (4.10-5.30); REDCELL DISTRIBUTION WIDTH-CV 14.8 % (11.5-14.5)
[2021-03-22 05:28] LABS: ALBUMIN 2.6 gm/dL (3.5-5.0); CALCIUM 8.8 mg/dL (8.4-10.2); CREATININE, serum 0.59 mg/dL (0.57-1.11); MAGNESIUM 1.3 mg/dL (1.6-2.6); PHOSPHOROUS 3.4 mg/dL (2.3-4.7); POTASSIUM 3.9 mmol/L (3.5-4.5)
--- NOTE | 2021-03-22 08:00 | NUR ---
PATIENT IS AWAKE AND GETS UP TO RECLINER TO EAT BREAKFAST. SHE HAS NO COMPLAINTS AT THIS TIME. SHE IS WEARING AIRVO AT 60L/90%. VS WNL. PATIENT IS ASSESSED AND ASSISTED WITH ANY NEEDS.
--- NOTE | 2021-03-22 11:30 | NUR ---
PATIENT GOES BACK TO BED AT THIS TIME. SHE STATES THAT SHE WANTS TO BE ABLE TO TAKE A NAP BEFORE THE /[employer] GAME TONIGHT. PATIENT IS REMINDED THAT SHE NEEDS TO BE ACTIVE IN ORDER TO IMPROVE HER HEALTH AND O2 SITUATION. SHE VERBALIZES UNDERSTANDING AND STATES THAT HER DEPRESSION IS "REALLY BAD RIGHT NOW." I ASK HER WHAT SHE DOES AT HOME TO HELP WITH THIS. SHE JUST STATES THAT SHE HAS BEEN STRUGGLING WITH IT FOR MANY YEARS.
--- NOTE | 2021-03-22 15:00 | NUR ---
PATIENT CALLS AND ASKS FOR PAIN MEDICATION TO HELP WITH NEUROPATHY PAIN AND FOOT PAIN. SHE STATES THAT SHE WAS TRYING TO REST EARLIER AND THE PHYSICAL THERAPIST INTERRUPTED HER AND NOW SHE CAN'T RELAX. I GIVE PATIENT A PRN NORCO TO HELP WITH THE PAIN. EMOTIONAL SUPPORT IS GIVEN. PATIENT REQUESTS THAT SHE BE LEFT ALONE SO SHE CAN GET A NAP.
--- NOTE | 2021-03-22 17:30 | NUR ---
I WAKE PATIENT UP AT THIS TIME FOR DINNER. SHE IS IN [facility]. AIRVO SETTINGS ARE THE SAME.
--- NOTE | 2021-03-22 19:30 | NUR ---
REPORT GIVEN TO MARLIN CONNER
[2021-03-23] VITALS (946 sets, daily range): BP systolic 84–99; BP diastolic 46–70; PULSE 71–98; TEMP 98–98.8; O2SAT 79–100
--- NOTE | 2021-03-23 02:15 | NUR ---
PT C/O NOT BEING ABLE TO SLEEP. HAS SO FAR THIS SHIFT REFUSED THE BIPAP. GIVEN KLONIPIN AND ROBITUSSIN PER PT REQUEST AND C/O COUGH. REITERATED IMPORTANCE OF BIPAP, PT AGREES TO PUT ON NOW. ENCOURAGED TO PUT PHONE AWAY FOR SLEEP, BUT PT IS PLAYING GAME AND DOES NOT WANT TO PUT UP YET. WILL CONTINUE TO MONITOR.
--- NOTE | 2021-03-23 03:45 | NUR ---
PT ASLEEP, TOLERATING BIPAP WELL. VSS.
[2021-03-23 05:15] LABS: BASO % 0.1 % (0.0-2.0); EOS % 0.2 % (0-4.0); GRAN # 9.2 K/mm3 (1.4-6.5); HEMOGLOBIN 11.3 g/dl (12.5-16.0); LYMPH # 1.4 K/mm3 (1.2-3.4); LYMPH % 12.3 % (20.0-51.0); MEAN CELL VOLUME 90 fl (80.0-100.0); MEAN CORPUSCULAR HEMOGLOBIN 28 pg (27.0-31.0); MEAN CORPUSCULAR HGB CONC 31 g/dl (33.0-37.0); MEAN PLATELET VOLUME 12.1 fl (7.4-10.4); MONO # 0.8 K/mm3 (0.1-0.6); MONO % 6.8 % (1.7-9.3); PLATELET COUNT 272 K/mm3 (130-400); RED BLOOD COUNT 4.03 M/mm3 (4.10-5.30); REDCELL DISTRIBUTION WIDTH-CV 14.6 % (11.5-14.5)
[2021-03-23 05:27] LABS: ALBUMIN 2.5 gm/dL (3.5-5.0); CALCIUM 8.5 mg/dL (8.4-10.2); CREATININE, serum 0.55 mg/dL (0.57-1.11); MAGNESIUM 1.4 mg/dL (1.6-2.6); PHOSPHOROUS 3.5 mg/dL (2.3-4.7); POTASSIUM 3.6 mmol/L (3.5-4.5)
[2021-03-23 05:28] LABS: HEMATOCRIT 36.2 % (37.0-47.0)
--- NOTE | 2021-03-23 18:10 | NUR ---
PT ADMITTED TO THE UNIT. ORIENTED PT TO ROOM. DENIES ANY NEEDS AT THIS TIME. WILL PASS ALONG REPORT TO ONCOMING RN.
[2021-03-24] VITALS (7 sets, daily range): BP systolic 85–127; BP diastolic 47–68; PULSE 81–105; TEMP 98.2–100.3
[2021-03-24 06:43] LABS: BASO % 0.1 % (0.0-2.0); EOS % 0.4 % (0-4.0); GRAN # 5.9 K/mm3 (1.4-6.5); GRAN % 73.5 % (42.2-75.2); HEMOGLOBIN 10.8 g/dl (12.5-16.0); LYMPH # 1.3 K/mm3 (1.2-3.4); LYMPH % 16.6 % (20.0-51.0); MEAN CELL VOLUME 91 fl (80.0-100.0); MEAN CORPUSCULAR HEMOGLOBIN 28 pg (27.0-31.0); MEAN CORPUSCULAR HGB CONC 31 g/dl (33.0-37.0); MEAN PLATELET VOLUME 12.6 fl (7.4-10.4); MONO # 0.7 K/mm3 (0.1-0.6); MONO % 8.5 % (1.7-9.3); PLATELET COUNT 247 K/mm3 (130-400); RED BLOOD COUNT 3.87 M/mm3 (4.10-5.30); REDCELL DISTRIBUTION WIDTH-CV 15.2 % (11.5-14.5)
[2021-03-24 07:00] LABS: ALBUMIN 2.4 gm/dL (3.5-5.0); CALCIUM 8.2 mg/dL (8.4-10.2); CREATININE, serum 0.53 mg/dL (0.57-1.11); MAGNESIUM 1.4 mg/dL (1.6-2.6); PHOSPHOROUS 3.8 mg/dL (2.3-4.7); POTASSIUM 3.6 mmol/L (3.5-4.5)
[2021-03-24 07:05] LABS: HEMATOCRIT 35.1 % (37.0-47.0)
--- NOTE | 2021-03-24 11:23 | NUR ---
PT RESTING IN BED. MORNING MEDICATIONS GIVEN. SHIFT ASSESSMENT COMPLETED. PT FOUND BY AID WITH BIPAP AND OFF, EDUCATED PT ON THE IMPORTANCE OF OXYGEN ADHERENCE. WILL CONTINUE TO MONITOR.
--- NOTE | 2021-03-24 13:02 | NUR ---
The hospitalist would like a referral sent to [facility] on the patient. The hospitalist plans to talk to the patient about [facility]. ELVIS contacted and faxed referral to Tye at [facility]. Awaiting screen.
--- NOTE | 2021-03-24 21:58 | NUR ---
PT IS LAYIN IN BED WITH AERVO ON. PT INQUIRED ABOUT PAIN MEDICATION THAT SHE RECEIVED IN THE ICU, NORMS, THIS RN EXPLAINED THAT THIS PAIN MEDICATION WAS DISCONTINUED. THIS RN ASKED ABOUT PAIN LEVEL CURRENTLY, PT STATED THAT "IT IS NOT TOO BAD, WHEN IT DOES GET BAD, IT IS AROUND A 6." THIS RN EDUCATED PT ABOUT PROLONGED USE THAT COULD LEAD TO CONSTIPATION AND OTHER RISKS. THIS PT STATED THAT SHE HAD NOT HAD A BOWEL MOVEMENT SINCE BEING IN THE ICU. THIS RN EDUCATED PT ABOUT BOWELS CAN BE HELPED WITH SOME MOVEMENT, PT STATED SHE DID NOT FEEL SAFE TO MOVE AROUND AND GET UP. SHE STATED THAT SHE STAYED IN HER BED EVEN AT HOME. ASSESSMENT WAS COMPLETED. MEDICATIONS GIVEN. PT STATED SHE WANTED TO TRY TO USE THE BEDSIDE COMMODE BEFORE RT RETURNED TO TRY A SMALLER MASK FOR HER BIPAP. THIS RN ASSISTED PT TO COMMODE, NO BOWEL MOVEMENT.
[2021-03-25 00:52] VITALS: BP 97/52; PULSE 93; TEMP 98.2
[2021-03-25 05:45] VITALS: BP 91/63; PULSE 91; TEMP 98.8
--- NOTE | 2021-03-25 06:28 | NUR ---
PT HAD UNEVENTFUL NIGHT. PT REMAINED ON BIPAP OVERNIGHT, THIS RN SWITCHED PT TO AERVO WHEN GIVING MORNING MEDS PER PT REQUEST. PT STATED BIPAP IS UNCOMFORTABLE TO SLEEP WITH, CAUSES NECK PAINS. CALL LIGHT IN REACH. NO OTHER NEEDS AT THIS TIME.
[2021-03-25 06:44] LABS: BASO % 0.2 % (0.0-2.0); EOS % 0.5 % (0-4.0); GRAN # 6.6 K/mm3 (1.4-6.5); GRAN % 75.8 % (42.2-75.2); HEMOGLOBIN 10.8 g/dl (12.5-16.0); LYMPH # 1.4 K/mm3 (1.2-3.4); LYMPH % 15.7 % (20.0-51.0); MEAN CELL VOLUME 90 fl (80.0-100.0); MEAN CORPUSCULAR HEMOGLOBIN 28 pg (27.0-31.0); MEAN CORPUSCULAR HGB CONC 31 g/dl (33.0-37.0); MEAN PLATELET VOLUME 12.7 fl (7.4-10.4); MONO # 0.6 K/mm3 (0.1-0.6); PLATELET COUNT 222 K/mm3 (130-400); RED BLOOD COUNT 3.85 M/mm3 (4.10-5.30); REDCELL DISTRIBUTION WIDTH-CV 15.3 % (11.5-14.5)
[2021-03-25 06:49] LABS: HEMATOCRIT 34.6 % (37.0-47.0)
[2021-03-25 07:02] LABS: ALBUMIN 2.3 gm/dL (3.5-5.0); CALCIUM 8.6 mg/dL (8.4-10.2); CREATININE, serum 0.53 mg/dL (0.57-1.11); MAGNESIUM 1.6 mg/dL (1.6-2.6); PHOSPHOROUS 3.4 mg/dL (2.3-4.7); POTASSIUM 3.7 mmol/L (3.5-4.5)
[2021-03-25 08:41] VITALS: BP 87/50; PULSE 91; TEMP 98.4
--- NOTE | 2021-03-25 09:44 | NUR ---
PT RESTING IN BED. MORNING MEDICATIONS GIVEN. SHIFT ASSESSMENT COMPLETED. DENIES ANY PAIN OR NEEDS AT THIS TIME. FEELS LIKE SHE MIGHT HAVE A BOWEL MOVEMENT, WILL ATTEMPT LATER. WILL CONTINUE TO MONITOR.
[2021-03-25 12:52] VITALS: BP 90/53; PULSE 100; TEMP 98.2
--- NOTE | 2021-03-25 12:59 | NUR ---
ELVIS contacted the patient to update about [facility]. The patient reports that the hospitalist did talk to her yesterday about [facility]. She reports that she would prefer not to go there, but understands that it is what is needed and would go there. She asked that SW update her . ELVIS then contacted the patient's , Luis M, to update about [facility]. Luis M is in agreement to the patient going to [facility]. ELVIS updated Tye at [facility]. Tye contacted the . Tye reports that they are able to accept the patient today at their [place] location. ELVIS updated the hospitalist. ELVIS updated Luis M. Luis M is agreeable to the plan. The patient is to discharge today, 03/25, to [facility] in [place]. Transportation was scheduled at 1330, via [facility]. ELVIS informed the patient's , MARLIN, and Tye at [facility] of the transport time. ELVIS read the EMS Consent Form to the patient's , Luis M, over the phone. Luis M verbalized understanding and gave SW approval to sign the form on her behalf. They were all agreeable to the time. No additional needs at this time.
--- NOTE | 2021-03-25 15:35 | NUR ---
Patient left to [facility] before PICC dressing could be performed. [facility] contacted [facility] and informed them PICC dressing change due today.
== END 2021-03-25 13:49 | DRG 177 ==
LOC: COL.ER 10:53 → ICU 14:36 → MEDICAL 03-23 16:58
PROVIDERS: Family Medicine; Internal Medicine; Internal Medicine Pulmonary Disease; Internal Medicine Sleep Medicine; ADMIT Internal Medicine
PROC: 02HV33Z Insertion of Infusion Device into Superior Vena Cava, Percutaneous Approach (ICD-10-PCS; 2021-03-13)
PROC: XW033E5 Introduction of Remdesivir Anti-infective into Peripheral Vein, Percutaneous Approach, New Technology Group 5 (ICD-10-PCS; principal; 2021-03-14)
PROC: 3E0DX3Z Introduction of Anti-inflammatory into Mouth and Pharynx, External Approach (ICD-10-PCS; 2021-03-14)
PROC: 5A09457 Assistance with Respiratory Ventilation, 24-96 Consecutive Hours, Continuous Positive Airway Pressure (ICD-10-PCS; 2021-03-14)
DX: U07.1 COVID-19 (principal); J12.82 Pneumonia due to coronavirus disease 2019; J96.21 Acute and chronic respiratory failure with hypoxia; J44.0 Chronic obstructive pulmonary disease with (acute) lower respiratory infection; N39.0 Urinary tract infection, site not specified; J44.9 Chronic obstructive pulmonary disease, unspecified; I08.1 Rheumatic disorders of both mitral and tricuspid valves; G47.33 Obstructive sleep apnea (adult) (pediatric); I27.20 Pulmonary hypertension, unspecified; G56.00 Carpal tunnel syndrome, unspecified upper limb; M79.7 Fibromyalgia; F32.A Depression, unspecified; K21.9 Gastro-esophageal reflux disease without esophagitis; E87.6 Hypokalemia; G43.909 Migraine, unspecified, not intractable, without status migrainosus; E66.01 Morbid (severe) obesity due to excess calories; Z68.37 Body mass index [BMI] 37.0-37.9, adult; B96.20 Unspecified Escherichia coli [E. coli] as the cause of diseases classified elsewhere; F17.210 Nicotine dependence, cigarettes, uncomplicated; R29.6 Repeated falls; Z99.81 Dependence on supplemental oxygen; Z90.710 Acquired absence of both cervix and uterus; Z86.711 Personal history of pulmonary embolism; Z86.718 Personal history of other venous thrombosis and embolism; Z85.44 Personal history of malignant neoplasm of other female genital organs; Z88.6 Allergy status to analgesic agent; Z88.0 Allergy status to penicillin; Z88.2 Allergy status to sulfonamides
CPT/HCPCS: 99223-AI; 99232-AI; 99233-AI; 99239; C1751; J0696; J1100; J1650; J1815; J1940; J2997; J3475; J3480; J7030; J7050; J7060